=== PATIENT | female | born 1960 | race Caucasian/White ===

== ENCOUNTER 2016-05-30 14:58 | Inpatient (IN) | payer BC ==
[~2016-05-30] VITALS: Ht 157.5 cm; Wt 65.5 kg
[~2016-05-30 14:58] MED LIST: AMLO5TAB2 PO; ASPI81TA44 PO; ASPI81TA9 PO; ATOR10TA PO; CARV3.12 PO; CARV6.252 PO; CEPH-264 PO; CILO100T21 PO; CLOP75TA PO; CLOP75TA27 PO; CYCL5TAB PO; DIAZ5TAB PO; FAMO20TA5 PO; FURO-68 PO; HYDR-2868 PO; HYDR-971 PO; HYDR12.58 PO; INSU100C4 SQ; INSU100I11 SQ; INSU100I13 SQ; INSU100V13 SQ; ISOS30TA4 PO; LEVO500T38 PO; LISI-334 PO; LISI10TA2 PO; LISI40TA PO; METF10002 PO; PANT40TA3 PO; POLY17PO5 PO; TRAM50TA PO; VARE0.5T PO; VARE1TAB21 PO
--- NOTE | 2016-05-30 15:44 | PHYS DOC ---
Past Medical History Past Medical History: CAD, Diabetes-Type II, Hypertension, Renal Disease Additional Past Medical Histor: PVD,STEMI 04/2016 W STENT X 1 PLACEMENT RAC Past Surgical History: Appendectomy, Tonsillectomy, Other Additional Past Surgical Histo: Fem pop, LEFT OVARY REMOVED Alcohol Use: None Drug Use: None Adult General Chief Complaint Chief Complaint: CHEST PAIN HPI HPI 55-year-old female presents with ongoing chest pain for the last day midsternal in origin. She rates her pain a 9/10. Patient has a significant history of recent cardiac arrest on May 13 that required 4 minutes of CPR. Patient was then taken to the [facility] and had an RCA that was stented and an external defibrillator that was placed. Patient is currently having external defibrillator in place for 3 months and then will have an implantable to fibrillator after that. She denies the device going off. She denies any specific complaints. Review of Systems Review of Systems Constitutional: Denies fever or chills [] Eyes: Denies change in visual acuity, redness, or eye pain [] HENT: Denies nasal congestion or sore throat [] Respiratory: Denies cough or shortness of breath [] Cardiovascular: No additional information not addressed in HPI [] GI: Denies abdominal pain, nausea, vomiting, bloody stools or diarrhea [] : Denies dysuria or hematuria [] Musculoskeletal: Denies back pain or joint pain [] Integument: Denies rash or skin lesions [] Neurologic: Denies headache, focal weakness or sensory changes [] Endocrine: Denies polyuria or polydipsia [] Allergies Allergies Allergies Coded Allergies Type Severity Reaction Last Updated Verified codeine Allergy Intermediate Swelling- Tolerates [place] 05/30/16 Yes varenicline Adverse Reaction Intermediate Anxiety 05/30/16 Yes Physical Exam Physical Exam Constitutional: Well developed, well nourished, no acute distress, non-toxic appearance. [] HENT: Normocephalic, atraumatic, bilateral external ears normal, oropharynx moist, no oral exudates, nose normal. [] Eyes: PERRLA, EOMI, conjunctiva normal, no discharge. [] Neck: Normal range of motion, no tenderness, supple, no stridor. [] Cardiovascular:Heart rate regular rhythm, no murmur [] Lungs & Thorax: Bilateral breath sounds clear to auscultation [] Abdomen: Bowel sounds normal, soft, no tenderness, no masses, no pulsatile masses. [] Skin: Warm, dry, no erythema, no rash. [] Back: No tenderness, no CVA tenderness. [] Extremities: No tenderness, no cyanosis, no clubbing, ROM intact, no edema. [] Neurologic: Alert and oriented X 3, normal motor function, normal sensory function, no focal deficits noted. [] Psychologic: Affect normal, judgement normal, mood normal. [] Current Patient Data Vital Signs Vital Signs Date Time Temp Pulse Resp B/P Pulse Ox O2 Delivery O2 Flow Rate FiO2 05/30/16 15:04 98.1 71 18 114/57 Room Air 98.1 EKG EKG EKG as interpreted by me shows a sinus rhythm with rate of 75 bpm. There does appear to be some mild signs of ischemia on this EKG. In the leads aVL, V5, V6 there is some mild ST depression. There does not appear to be any acute ST elevation. This EKG does not meet STEMI criteria. Radiology/Procedures Radiology/Procedures Portable one view of the chest as interpreted by me does not reveal an acute cardiopulmonary process. Course & Med Decision Making Course & Med Decision Making Pertinent Labs and Imaging studies reviewed. (See chart for details) This 54-year-old female with significant history recent cardiac arrest is presenting with going chest pain will be admitted to the hospital for further evaluation and treatment. Her case was discussed with the hospitalist, Kenn Taveras, who agreed to admit the patient for further evaluation and treatment with a cardiology consult. An i-STAT troponin, chest x-ray and EKG were unrevealing at this time. She was admitted without incident. Dragon Disclaimer Dragon Disclaimer This electronic medical record was generated, in whole or in part, using a voice recognition dictation system. Departure Departure Impression: Primary Impression: Chest pain Disposition: ADMITTED INPATIENT Admitting Physician: Kenn Taveras Condition: STABLE Referrals: KENN TAVERAS MD (PCP) ARMIDA CASTRO DO May 30, 2016 15:43
[2016-05-30] MEDS ORDERED: ACETAMINOPHEN 325 MG TABLET. PO PRN (15:45)
[2016-05-30 15:50] LABS: BASO # 0.2 x10^3/uL (0.0-0.2); BASO % 2 % (0-3); EOS % 4 % (0-3); HEMATOCRIT 28.9 % (36.0-47.0); HEMOGLOBIN 9.6 g/dL (12.0-15.5); LYMPH # 1.8 x10^3/uL (1.0-4.8); LYMPH % 18 % (24-48); MEAN CORPUSCULAR HEMOGLOBIN 30 pg (25-35); MEAN CORPUSCULAR HGB CONC 33 g/dL (31-37); MEAN CORPUSCULAR VOLUME 90 fL (79-100); MONO % 5 % (0-9); NEUT % 72 % (31-73); PLATELET COUNT 550 x10^3/uL (140-400); RED BLOOD COUNT 3.22 x10^6/uL (3.50-5.40); RED CELL DISTRIBUTION WIDTH 13.5 % (11.5-14.5); WHITE BLOOD COUNT 9.9 x10^3/uL (4.0-11.0)
[2016-05-30 16:06] LABS: CALCIUM 9.1 mg/dL (8.5-10.1); CREATININE 2.7 mg/dL (0.6-1.0); GFR 18.4; POTASSIUM 5.5 mmol/L (3.5-5.1)
[2016-05-30] MEDS: ONDANSETRON PF 4 MG/2 ML VIAL. IV PRN (16:19)
[2016-05-30] MEDS: FENTANYL PF 100 MCG/2 ML VIAL. IV PRN ×2 (16:19→21:20)
--- NOTE | 2016-05-30 16:35 | EKG ---
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
[2016-05-30 17:42] VITALS: BP 121/53
[2016-05-30] MEDS ORDERED: POLYETHYLENE GLYCOL 3350 17 GM PACKET. PO PRN (18:00)
[2016-05-30] MEDS ORDERED: FUROSEMIDE 40 MG TABLET PO PRN (18:00)
[2016-05-30] MEDS ORDERED: DEXTROSE 50% 25 GM / 50ML DISP.SYRIN. IV PRN (18:00)
[2016-05-30] MEDS ORDERED: INSULIN ASPART 300 UNITS/3 ML INSULN.PEN SQ ONE (19:15)
[2016-05-30 19:35] VITALS: BP 113/53
[2016-05-30] MEDS: HYDRALAZINE 25 MG TABLET PO SCH (21:21)
[2016-05-30] MEDS: INSULIN DETEMIR 300 UNITS/3 ML INSULN.PEN. SQ SCH (21:25)
[2016-05-30 23:40] VITALS: BP 129/59
[2016-05-31] MEDS: FENTANYL PF 100 MCG/2 ML VIAL. IV PRN ×2 (00:20→08:57)
[2016-05-31] MEDS: ONDANSETRON PF 4 MG/2 ML VIAL. IV PRN (02:23)
[2016-05-31 03:00] VITALS: BP 124/50
[2016-05-31 03:41] LABS: BASO # 0.1 x10^3/uL (0.0-0.2); BASO % 1 % (0-3); EOS % 5 % (0-3); HEMATOCRIT 27.3 % (36.0-47.0); LYMPH # 2.6 x10^3/uL (1.0-4.8); LYMPH % 31 % (24-48); MEAN CORPUSCULAR HEMOGLOBIN 29 pg (25-35); MEAN CORPUSCULAR HGB CONC 33 g/dL (31-37); MEAN CORPUSCULAR VOLUME 89 fL (79-100); MONO % 8 % (0-9); NEUT % 55 % (31-73); PLATELET COUNT 476 x10^3/uL (140-400); RED BLOOD COUNT 3.06 x10^6/uL (3.50-5.40); RED CELL DISTRIBUTION WIDTH 13.9 % (11.5-14.5); WHITE BLOOD COUNT 8.2 x10^3/uL (4.0-11.0)
[2016-05-31 04:03] LABS: CALCIUM 8.4 mg/dL (8.5-10.1); CREATININE 2.9 mg/dL (0.6-1.0); POTASSIUM 5.2 mmol/L (3.5-5.1)
[2016-05-31 07:00] VITALS: BP 109/46
--- NOTE | 2016-05-31 07:11 | ACF ---
Admission Forms Criteria CHEST PAIN Clinical Indications for Admission to Inpatient Care (Place 'X' for any and all applicable criteria): Admission is indicated for chest pain and ANY ONE of the following(1)(2)(3)(4)(5 ): [ ]I. Angina with acute coronary syndrome (Also use Myocardial Infarction or Angina guideline) [ ]II. Hemodynamic instability [ X]III. Angina needing acute intervention as indicated by ALL of the following (11)(12): [X ]a) Unstable angina is present as indicated by angina that is ANY ONE of the following: [ ]i) New onset [ ]ii) Nocturnal [ X]iii) Prolonged at rest [ ]iv) Progressive [X ]b) Angina warrants acute intervention as indicated by ANY ONE of the following: [ ]i) Recurrent angina (e.g, not responding as previously to treatment) [ ]ii) Angina at rest or with low-level activities despite initial medical therapy [ ]iii) New or presumably new ST-segment depression on ECG [ ]iv) Signs or symptoms of heart failure (eg, dyspnea, pulmonary edema) [ ]v) New or worsening mitral regurgitation [ ]vi) Hemodynamic instability [ ]vii) Dangerous arrhythmia (eg, sustained ventricular tachycardia) [ ]viii) History of percutaneous coronary intervention within 6 months [ ]ix) History of coronary artery bypass graft surgery [ ]x) AGUSTIN risk score of 2 or greater[A] [ X]xi) History of Diabetes(14) [ ]xii) High-risk cardiac ischemia findings on noninvasive testing (e.g, echocardiogram, treadmill testing, nuclear scan) [ ]xiii) Chronic renal insufficiency (ie, estimated GFR less than 60 mL/min/1.732m) [ ]xiv) Left ventricular ejection fraction less than 40% [ ]IV. Evidence of UT (eg, cardiac biomarkers positive, ST-segment elevation on ECG) also use Myocardial Infarction Criteria Form. [ ]V. Pulmonary edema [ ]. Respiratory distress [ ]VII. Chest pain indicative of serious diagnosis other than coronary artery disease (eg, aortic dissection) [ ]VIII. Contraindications and/or Inappropriate clinical situations for Observational Care in patients with Chest Pain, when ANY ONE of the following is required: [ ]a) Patient with risk factor for pulmonary embolism, acute coronary syndrome and myocardial infarction (18) [ ]b) Patient with Pulmonary embolism require an average LOS of 4.3 days, therefore emergency department observation management is inappropriate 18,23 [ ]c) Painful condition/s in the elderly, have the highest rate of recidivism after emergency department observation management (10.8%) 20,21,22 [ ]d) Elevated cardiac biomarker requires intensive and exhaustive care (19) [ ]IX. General contraindications and/or Inappropriate clinical situations for Observational Care in patients with Chest Pain, when ANY ONE of the following is required: [ ]a) Prediction of prolongation of LOS based on ANY ONE of the following may be considered as a contraindication for observational care 2, 3, 4, 5, 6, 7, 8, 9, 10, 11 [ ]i) Age > 65 yrs. [ ]ii) Patient arriving by ambulance [ ]iii) Patient with high acuity [ ]iv) Patient requiring vital sign monitoring [ ]v) Patient on IV medication [ ]b) Systolic blood pressures 180mmHg 3,12 [ ]c) Patient with altered mental status including delirium and other alteration of consciousness, (3) [ ]d) Patient whose discharge disposition will be to a detention home or rehabilitation home should not be managed in Emergency Department Observation Unit. CMS rule requires 3 days hospital stay before such placement. 3,13 [ ]e) Patient with failure to thrive due to broad array of etiologies 3,16,17 [ ]f) Inability to ambulate 3,14 Extended stay beyond goal length of stay may be needed for (1)(28): [ ]a) Specific condition diagnosed after evaluation (eg, pulmonary embolism, aortic dissection) [ ]b) Unstable angina [ ]c) Continued suspicion of acute coronary syndrome with inability to complete needed cardiac evaluation (eg, patient clinically unable to undergo stress testing) [ ]d) Myocardial infarction (Contents from ANGINA and CHEST PAIN clinical indications for admission to inpatient care have been integrated in this form) The original [facility] content created by [employer] has been revised. The portions of the content which have been revised are identified through the use of italic text or in bold, and [facility] has neither reviewed nor approved the modified material. All other unmodified content is copyright [employer]. Please see references footnoted in the original [facility] edition 2016 Admission Criteria Met?: Yes ANI CROOKS May 31, 2016 07:11 ADRIANA CHAVES Jun 01, 2016 06:04
[2016-05-31] MEDS: INSULIN DETEMIR 300 UNITS/3 ML INSULN.PEN. SQ SCH ×2 (08:00→17:28)
[2016-05-31] MEDS: INSULIN ASPART 300 UNITS/3 ML INSULN.PEN SQ SCH ×3 (08:00→17:29)
--- NOTE | 2016-05-31 08:31 | RAD ---
Indication chest pain. A single view of the chest was obtained. Comparison is made to an examination 8 days earlier. The heart and pulmonary vessels are within normal limits. There is some minimal volume loss at the left lung base likely reflecting atelectasis. A definite consolidated pneumonia is not seen. Significant pleural fluid is not seen. There is no pneumothorax. IMPRESSION: No focal process seen in the chest. Minimal volume loss, likely reflecting atelectasis, at the left lung base
--- NOTE | 2016-05-31 08:53 | PDOC ---
Provider Note Provider Note [id number] WILLA MABRY MD May 31, 2016 08:53
[2016-05-31] MEDS: CLOPIDOGREL BISULFATE 75 MG TABLET PO SCH (08:57)
[2016-05-31] MEDS: CARVEDILOL 6.25 MG TABLET PO SCH ×2 (08:57→17:25)
[2016-05-31] MEDS: PANTOPRAZOLE 40 MG TABLET. PO SCH (08:57)
[2016-05-31] MEDS: ASPIRIN ENTERIC COATED 81 MG TABLET.DR. PO SCH (08:57)
[2016-05-31] MEDS: ISOSORBIDE MONONITRATE ER 30 MG TAB.ER.24H PO SCH (09:00)
[2016-05-31] MEDS: HYDRALAZINE 25 MG TABLET PO SCH (09:00)
[2016-05-31] MEDS ORDERED: AMLODIPINE BESYLATE 5 MG TABLET PO SCH (09:00)
--- NOTE | 2016-05-31 09:57 | HP ---
ADMIT DATE: CHIEF COMPLAINT: Chest pain. HISTORY OF PRESENT ILLNESS: A 55-year-old white female with known coronary artery disease, CKD 3/4, and diabetes, came in with squeezing pressure-like chest pain in her upper chest her back that occurred while she was sitting at rest. Cardiac catheterization a few weeks ago showed coronary artery disease and stents were placed and she still has some residual disease left and this occurred after cardiac arrest and subsequent procedures. Subsequently, she has recovered. She went home on Imdur, hydralazine, and lisinopril new medications. EKG showed no acute change. In the ER, troponins x 3 were normal as well. PAST MEDICAL HISTORY: Well documented in the old record. ALLERGIES: CODEINE is the only drug she is allergic to. She is taking Chantix currently for tobacco. SOCIAL HISTORY: , employed. Nondrinker, heavy smoker for many years, although trying to quit now. FAMILY HISTORY: Unremarkable. REVIEW OF SYSTEMS: No other known problems. OBJECTIVE: ENT: All within normal limits. NECK: No JVD, masses, or thyroid enlargement. LUNGS: Clear. CARDIOVASCULAR: Regular rate. No irregular beat or murmur. ABDOMEN: Soft, benign, and nontender. EXTREMITIES: Good pedal and radial pulses. Joint, no joint or skin lesions, 2+ clubbing is noted. SKIN: Turgor normal. NEUROLOGIC: Physiologic. ASSESSMENT: 1. Chest pain suspicious for unstable angina in a patient with known coronary artery disease. Troponin is unremarkable and no ST changes. 2. Chronic kidney disease 3/4 slightly worse with mild hyperkalemia. This may be due to the recent addition of low dose lisinopril. 3. Anemia of chronic disease. 4. Chronic obstructive pulmonary disease. 5. Insulin-dependent diabetes. PLAN: We will hold lisinopril and follow potassium levels. We will hold Norvasc as her blood pressure is somewhat low as well. Cardiology to see regarding her chest pain as she is already maximally medically treated at this time. WILLA MABRY MD DR: TAQUERIA/minnie JOB#: [id number] / [id number]
[2016-05-31 11:00] VITALS: BP 111/51
--- NOTE | 2016-05-31 12:05 | PDOC2 ---
[facility] 05/31/16 1205: CARDIAC CONSULT DATE OF CONSULT Date of Consult DATE: 05/31/16 TIME: 10:20 REASON FOR CONSULT Reason for Consult: Chest Pain REFERRING PHYSICIAN Referring Physician: Dr. Regalado SOURCE Source: Chart review, Patient HISTORY OF PRESENT ILLNESS HISTORY OF PRESENT ILLNESS This is a 55 yo female, who recently underwent PCI/stent to RCA in the setting of non-STEMI and cardiac arrest, who presented with complaints of chest pain. Patient reports pain began yesterday afternoon. Located in her left central chest. Describes as pressure. Associated with nausea and numbness and tingling in jaw. Lasted approximately 40 mins. Was worsened with standing up; felt like blood pressure was too low. Relieved by fentanyl given in ED. Also reports experiencing pressure in upper back and intermittent fluttering sensation in her chest. Denies any SOA, diaphoresis, dizziness, orthopnea, or NEELY. No recent illness/ fevers. Reports compliance with medications. PAST MEDICAL HISTORY Past Medical History Cardiovascular: HTN, MS, CAD- s/p PCI/stent to RCA, cardiac arrest, Hyperlipidemia, ICM- LVEF 25%, Other (PAD with previous LENS BLOCKER/stent to NAN; LENS BLOCKER to in-stent restonsis of REIA; atherectomy/LENS BLOCKER/stent to RT SFA) GI: Other (gastric ulcer- 2011) Heme/Onc: Anemia NOS, Other (lumpectomy for breast lump - 2001) Hepatobiliary: Other (pancreatitis) ENT: Other (proliferative changes in both eyes; S/P laser surgery) Renal/: Chronic renal insuff (stage 3 - 4) Endocrine: Diabetes (type II) PAST SURGICAL HISTORY Past Surgical History Also see PMH Appendectomy, Tubal Ligation, Tonsillectomy, Other (left oopherectomy) FAMILY HISTORY Family History Coronary Artery Disease (mother), Diabetes (mother), Hypertension (father), Stroke (mother) SOCIAL HISTORY Smoke: <1 pack per day ALCOHOL: none Drugs: None Lives: with Family Domestic Violence: Neg CURRENT MEDICATIONS CURRENT MEDICATIONS Current Medications Medications (Trade) Dose Ordered Sig/Suhas Route PRN Reason Start Time Stop Time Status Last Admin Dose Admin Ondansetron HCl (Zofran) 4 mg PRN Q8HRS PRN IV NAUSEA/VOMITING 05/30/16 15:45 05/31/16 15:44 05/31/16 02:23 Fentanyl Citrate (Fentanyl 2ml Vial) 50 mcg PRN Q2HR PRN IV PAIN 05/30/16 15:45 05/31/16 15:44 05/31/16 08:57 Aspirin (Ecotrin) 81 mg DAILY PO 05/31/16 09:00 05/31/16 08:57 Carvedilol (Coreg) 6.25 mg BIDWMEALS PO 05/31/16 08:00 05/31/16 08:57 Clopidogrel Bisulfate (Plavix) 75 mg DAILY PO 05/31/16 09:00 05/31/16 08:57 Hydralazine HCl (Apresoline) 25 mg TID PO 05/30/16 21:00 05/30/16 21:21 Pantoprazole Sodium (Protonix) 40 mg DAILY PO 05/31/16 09:00 05/31/16 08:57 Insulin Detemir (Levemir) 15 units BIDWMEALS SQ 05/30/16 21:00 05/30/16 21:25 Insulin Aspart (Novolog) 4 units 1X ONCE SQ 05/30/16 19:15 05/30/16 19:19 DC 05/30/16 19:29 ALLERGIES ALLERGIES: Coded Allergies: codeine (Verified Allergy, Intermediate, Swelling- Tolerates [place], 05/30/16 ) varenicline (Verified Adverse Reaction, Intermediate, Anxiety, 05/30/16) states she 'goes out of my mind' ROS Review of System 14 point ROS conducted with pertinent positives noted above in HPI. PHYSICAL EXAM General: Alert, Oriented X3, Cooperative, No acute distress HEENT: Atraumatic, Mucous membr. moist/pink Lungs: Clear to auscultation, Normal air movement Heart: Regular rate, Normal S1, Normal S2, Other (2/6 systolic murmur) Abdomen: Soft, No tenderness Extremities: No edema, Normal pulses Skin: No breakdown, No significant lesion Neuro: Normal speech, Normal tone, Sensation intact Psych/Mental Status: Mental status NL, Mood NL MUSCULOSKELETAL: Full range of motion without pain VITALS VITALS Vital Signs Date Time Temp Pulse Resp B/P Pulse Ox O2 Delivery O2 Flow Rate FiO2 05/31/16 11:00 98.4 84 18 111/51 96 Room Air 98.4 LABS Lab: Laboratory Tests Test 05/30/16 15:40 05/30/16 15:48 05/30/16 17:47 05/30/16 20:54 White Blood Count 9.9x10^3/uL (4.0-11.0) Red Blood Count 3.22x10^6/uL (3.50-5.40) Hemoglobin 9.6g/dL (12.0-15.5) Hematocrit 28.9% (36.0-47.0) Mean Corpuscular Volume 90fL (79-100) Mean Corpuscular Hemoglobin 30pg (25-35) Mean Corpuscular Hemoglobin Concent 33g/dL (31-37) Red Cell Distribution Width 13.5% (11.5-14.5) Platelet Count 550x10^3/uL (140-400) Neutrophils (%) (Auto) 72% (31-73) Lymphocytes (%) (Auto) 18% (24-48) Monocytes (%) (Auto) 5% (0-9) Eosinophils (%) (Auto) 4% (0-3) Basophils (%) (Auto) 2% (0-3) Neutrophils # (Auto) 7.1x10^3uL (1.8-7.7) Lymphocytes # (Auto) 1.8x10^3/uL (1.0-4.8) Monocytes # (Auto) 0.5x10^3/uL (0.0-1.1) Eosinophils # (Auto) 0.4x10^3/uL (0.0-0.7) Basophils # (Auto) 0.2x10^3/uL (0.0-0.2) Sodium Level 134mmol/L (136-145) Potassium Level 5.5mmol/L (3.5-5.1) Chloride Level 98mmol/L (98-107) Carbon Dioxide Level 28mmol/L (21-32) Anion Gap 8 (6-14) Blood Urea Nitrogen 39mg/dL (7-20) Creatinine 2.7mg/dL (0.6-1.0) Estimated GFR (Cockcroft-Gault) 18.4 Glucose Level 252mg/dL (70-99) Calcium Level 9.1mg/dL (8.5-10.1) Troponin I Quantitative < 0.017ng/mL (0.000-0.055) Bedside Troponin I 0.03ng/ml (<0.08) Glucose (Fingerstick) 242mg/dL (70-99) 373mg/dL (70-99) Test 05/30/16 21:47 05/31/16 03:25 05/31/16 07:03 05/31/16 11:44 Troponin I Quantitative < 0.017ng/mL (0.000-0.055) 0.019ng/mL (0.000-0.055) White Blood Count 8.2x10^3/uL (4.0-11.0) Red Blood Count 3.06x10^6/uL (3.50-5.40) Hemoglobin 9.0g/dL (12.0-15.5) Hematocrit 27.3% (36.0-47.0) Mean Corpuscular Volume 89fL (79-100) Mean Corpuscular Hemoglobin 29pg (25-35) Mean Corpuscular Hemoglobin Concent 33g/dL (31-37) Red Cell Distribution Width 13.9% (11.5-14.5) Platelet Count 476x10^3/uL (140-400) Neutrophils (%) (Auto) 55% (31-73) Lymphocytes (%) (Auto) 31% (24-48) Monocytes (%) (Auto) 8% (0-9) Eosinophils (%) (Auto) 5% (0-3) Basophils (%) (Auto) 1% (0-3) Neutrophils # (Auto) 4.5x10^3uL (1.8-7.7) Lymphocytes # (Auto) 2.6x10^3/uL (1.0-4.8) Monocytes # (Auto) 0.6x10^3/uL (0.0-1.1) Eosinophils # (Auto) 0.4x10^3/uL (0.0-0.7) Basophils # (Auto) 0.1x10^3/uL (0.0-0.2) Sodium Level 135mmol/L (136-145) Potassium Level 5.2mmol/L (3.5-5.1) Chloride Level 99mmol/L (98-107) Carbon Dioxide Level 30mmol/L (21-32) Anion Gap 6 (6-14) Blood Urea Nitrogen 41mg/dL (7-20) Creatinine 2.9mg/dL (0.6-1.0) Estimated GFR (Cockcroft-Gault) 17.0 Glucose Level 148mg/dL (70-99) Calcium Level 8.4mg/dL (8.5-10.1) Glucose (Fingerstick) 108mg/dL (70-99) 294mg/dL (70-99) ECHOCARDIOGRAM ECHOCARDIOGRAM DATE: 05/13/16 1719 <Conclusion> The left ventricle is normal size. Left ventricle ejection fraction is severely impaired. The Ejection Fraction is <20%. There is mild concentric left ventricular hypertrophy. There is no significant aortic valvular stenosis. Doppler and Color Flow revealed no significant aortic regurgitation. Doppler and Color Flow revealed trace to mild mitral regurgitation. Doppler and Color Flow revealed mild tricuspid regurgitation. The PA pressure was estimated at 15 mmHg. DATE: 05/24/16 1408 <Conclusion> The left ventricular systolic function is moderate to severely diminished. LVEF 25% There is severe hypokinesis of the distal 2/3rd of the LV with prominent wall motion abnormalities noted in the infero-septum, apex and anterior marks. The lateral wall is grossly normal. Cannot rule out a mural apical LV thrombus. There is small left pleural effusion. STRESS TEST STRESS TEST Conclusion 1. Regadenoson cardioisotope stress test showed diaphragmatic attenuation artifact without any evidence of ischemia. 2. Moderate global left ventricular dysfunction with ejection fraction calculated at 36%. 3. Low to Intermediate risk for cardiac events. DATE: 05/05/16 1304 HEART CATH HEART CATH Findings. Hemodynamics. LV 108/18, aortic root 104/52. Coronaries. Left main. The left main had no lesions. Left anterior descending. The LAD had a mid 50% lesion and diffuse mid disease in the 35% range. Left circumflex. The left circumflex had a mid 30-35% lesion. It had diffuse distal small vessel disease. Right coronary artery. The right coronary artery had diffuse mid disease of 40% . It also had a mid to distal subtotal lesion. <Conclusion> Severe single-vessel coronary disease with a subtotal lesion in the right coronary artery. Diffuse moderate disease in the LAD and left circumflex system. Successful bare metal stenting of the subtotal right coronary artery lesion with a 0% residual. DATE: 05/13/16 7262 ASSESSMENT/PLAN ASSESSMENT/PLAN 1. Chest Pain, non-cardiac troponin series normal- AMI ruled out EKG without any significant acute changes by comparison recent cath with PCI/BMS to RCA. Diffuse moderate disease of LAD and LCx as noted above. Pain MSK in origin as it is clearly reproducible with palpation to central chest continue with secondary prevention including DAPT. 2. Palpitations no significant ectopy noted on telemetry despite having fluttering in chest last night. check TSH, Mg continue BB currently wearing LifeVest- will attempt to obtain device records to note presence of significant arrhythmias contributing to symptoms 3. Chronic systolic heart failure Recent 2-D echo showed LVEF 25% repeat echo today with LVEF ~ 25% - no significant change. Appears clinically compensated. continue with optimization therapy. Lasix PRN Baseline CR has been near 2.7, now 2.9 4. Ischemic cardiomyopathy LVEF remains depressed on repeat echo Plan for outpatient 2-D echocardiogram in 2-3 months to evaluate the need for AICD implantation. resume LifeVest upon discharge 5. Peripheral vascular disease s/p percutaneous intervention, presently without any claudication symptoms. 6. Hypertension: low-normotensive stop hydralazine 7. Diabetes mellitus type 2: Treat per IM 8. Chronic kidney disease Problems: ZO ALCARAZ MD 06/01/16 0817: CARDIAC CONSULT ALLERGIES ALLERGIES: Coded Allergies: codeine (Verified Allergy, Intermediate, Swelling- Tolerates [place], 05/30/16 ) varenicline (Verified Adverse Reaction, Intermediate, Anxiety, 05/30/16) states she 'goes out of my mind' ASSESSMENT/PLAN ASSESSMENT/PLAN Patient seen and examined. Agree with health advocate assessment and plan. Chest pain very atypical, reproducible to palpation and most probably musculoskeletal. Myocardial infarction was ruled out. Telemetry did not show any significant arrhythmias. Chronic systolic heart failure clinically well compensated. Continue current secondary prevention measures. No further cardiac workup is indicated at this time. Thank you for your consultation. Problems: MOE BENTONILY SUKHJINDER May 31, 2016 12:05 ZO ALCARAZ MD Jun 01, 2016 08:17
[2016-05-31 15:00] VITALS: BP 116/59
[2016-05-31] MEDS: HYDROCODONE/APAP 5/325MG TABLET. PO PRN (18:12)
[2016-05-31 19:40] VITALS: BP 116/59
[2016-05-31 22:45] VITALS: BP 145/70
[2016-06-01 03:35] VITALS: BP 161/68
[2016-06-01 04:34] LABS: CALCIUM 8.9 mg/dL (8.5-10.1); CREATININE 3.2 mg/dL (0.6-1.0); GFR 15.2; POTASSIUM 5.6 mmol/L (3.5-5.1)
[2016-06-01] MEDS: HYDROCODONE/APAP 5/325MG TABLET. PO PRN ×3 (05:45→13:45)
[2016-06-01 07:00] VITALS: BP 140/58
[2016-06-01] MEDS: ASPIRIN ENTERIC COATED 81 MG TABLET.DR. PO SCH (08:33)
[2016-06-01] MEDS: CARVEDILOL 6.25 MG TABLET PO SCH ×2 (08:33→16:53)
[2016-06-01] MEDS: CLOPIDOGREL BISULFATE 75 MG TABLET PO SCH (08:34)
[2016-06-01] MEDS: ISOSORBIDE MONONITRATE ER 30 MG TAB.ER.24H PO SCH (08:34)
[2016-06-01] MEDS: PANTOPRAZOLE 40 MG TABLET. PO SCH (08:34)
[2016-06-01] MEDS: INSULIN DETEMIR 300 UNITS/3 ML INSULN.PEN. SQ SCH ×2 (08:45→17:52)
[2016-06-01] MEDS: INSULIN ASPART 300 UNITS/3 ML INSULN.PEN SQ SCH ×3 (08:45→17:58)
--- NOTE | 2016-06-01 08:45 | PDOC ---
Provider Note Provider Note vss, bp ok, no edema, but K+ higher 5.6, creat 3.2- is off acei as of 05/30 as suspected source of K+- will sharif mena , add kayexalate, po hydrate, repeat lab in am- she agrees to plan WILLA MABRY MD Jun 01, 2016 08:45
[2016-06-01] MEDS ORDERED: SODIUM POLYSTYRENE SULFONATE 15 GM/60 ML ORAL.SUSP. PO ONE (09:00)
[2016-06-01 11:30] VITALS: BP 126/60
[2016-06-01 15:00] VITALS: BP 136/66
[2016-06-01 20:00] VITALS: BP 141/61
[2016-06-01 23:00] VITALS: BP 131/61
[2016-06-02 03:00] VITALS: BP 140/65
[2016-06-02] MEDS: HYDROCODONE/APAP 5/325MG TABLET. PO PRN (05:30)
[2016-06-02 06:19] LABS: CALCIUM 8.6 mg/dL (8.5-10.1); CREATININE 2.9 mg/dL (0.6-1.0)
[2016-06-02 06:22] LABS: POTASSIUM 5.2 mmol/L (3.5-5.1)
[2016-06-02 07:09] VITALS: BP 128/63
[2016-06-02] MEDS: INSULIN DETEMIR 300 UNITS/3 ML INSULN.PEN. SQ SCH (08:00)
[2016-06-02] MEDS: INSULIN ASPART 300 UNITS/3 ML INSULN.PEN SQ SCH ×2 (08:00→12:00)
[2016-06-02] MEDS: CARVEDILOL 6.25 MG TABLET PO SCH (08:00)
--- NOTE | 2016-06-02 09:33 | DISCH ---
DISCHARGE INSTRUCTIONS Condition on Discharge Condition on Discharge: Stable Activity After Discharge Activity Instructions for Disc: No restrictions Diet after Discharge Diet after Discharge: Renal Non-Dialysis Follow-Up Follow up with: asscheduled WILLA MABRY MD Jun 02, 2016 09:32
--- NOTE | 2016-06-02 09:38 | PDOC ---
Provider Note Provider Note [id number] WILLA MABRY MD Jun 02, 2016 09:38
[2016-06-02] MEDS ORDERED: SODIUM POLYSTYRENE SULFONATE 15 GM/60 ML ORAL.SUSP. PO ONE (10:00)
[2016-06-02 10:22] VITALS: BP 134/63
[2016-06-02 14:15] VITALS: BP 127/69
--- NOTE | 2016-06-02 16:09 | DS ---
DATE OF DISCHARGE: 06/02/2016 HOSPITAL SUMMARY: The patient has a history of cardiomyopathy and recent stents and cardiac arrest. She came back in with abrupt onset of chest pain and was possibly ischemic, but EKG showed no change and troponin showed no change as well. It was felt that the chest pain was more chest wall than cardiac. Troponin showed no acute change, TSH and chemistry profile unremarkable except for creatinine of 2.9, which is stable for her, though her admission potassium was high at 5.5. Her lisinopril was discontinued, which had been recently started for her ischemic cardiomyopathy. Potassium went up to 5.6 and then with two doses of Kayexalate, it came down to 5.2 at the time of dismissal and creatinine stable at 2.9. Hemoglobin was low at 9, which is normal for her and chest x-ray showed no acute change. She is comfortable to be followed as an outpatient at this point. FINAL DIAGNOSES: 1. Acute chest pain secondary to chest wall contusion from cardiac arrest and resuscitation. 2. Hyperkalemia likely secondary to JOSEPHINE inhibitors, improving. 3. Chronic kidney disease IV, stable. 3. Anemia of chronic disease. OPERATIONS, PROCEDURES, COMPLICATIONS: None. CONSULTATIONS: Dr. King's group. DISPOSITION: She will stay off lisinopril and other JOSEPHINE inhibitors as risk greater than benefit and also stop hydralazine. Rest of meds remain the same. Office followup is scheduled. Cardiac and renal restriction on diet as a diabetic and continue tobacco avoidance strongly encouraged. Prognosis is extremely guarded given the severity of her disease and she is wearing the LifeVest as a risk for malignant cardiac arrhythmias given her cardiac status. WILLA MABRY MD DR: TAQUERIA/minnie JOB#: [id number] / [id number]
== END 2016-06-02 15:42 | disposition home or self-care (01) | DRG 605 ==
LOC: ER 14:58 → 2 NORTH 15:39
PROVIDERS: ADMIT Family Medicine; ATTEND Family Medicine
DX: S20.219A Contusion of unspecified front wall of thorax, initial encounter (principal); I50.22 Chronic systolic (congestive) heart failure; N18.4 Chronic kidney disease, stage 4 (severe); I13.0 Hypertensive heart and chronic kidney disease with heart failure and stage 1 through stage 4 chronic kidney disease, or unspecified chronic kidney disease; E87.5 Hyperkalemia; D63.8 Anemia in other chronic diseases classified elsewhere; E11.22 Type 2 diabetes mellitus with diabetic chronic kidney disease; E78.5 Hyperlipidemia, unspecified; I25.10 Atherosclerotic heart disease of native coronary artery without angina pectoris; I25.2 Old myocardial infarction; D64.9 Anemia, unspecified; I25.5 Ischemic cardiomyopathy; I73.9 Peripheral vascular disease, unspecified; J44.9 Chronic obstructive pulmonary disease, unspecified; Z79.4 Long term (current) use of insulin; Z82.3 Family history of stroke; Z82.49 Family history of ischemic heart disease and other diseases of the circulatory system; Z83.3 Family history of diabetes mellitus; Z87.11 Personal history of peptic ulcer disease; Z87.891 Personal history of nicotine dependence; Z90.49 Acquired absence of other specified parts of digestive tract; Z95.5 Presence of coronary angioplasty implant and graft; Z95.810 Presence of automatic (implantable) cardiac defibrillator; Z98.890 Other specified postprocedural states; Z90.721 Acquired absence of ovaries, unilateral; Z88.5 Allergy status to narcotic agent; Z88.8 Allergy status to other drugs, medicaments and biological substances; T50.995A Adverse effect of other drugs, medicaments and biological substances, initial encounter
CPT/HCPCS: 36415; 71010; 80048; 82947; 83735; 84443; 84484; 85027; 93005; J1815; J2405; J3010; 99285-25

== ENCOUNTER 2016-06-14 11:25 | Emergency (ER) | payer BC ==
[~2016-06-14] VITALS: Ht 157.5 cm; Wt 57.2 kg
[2016-06-14 12:07] LABS: BASO # 0.1 x10^3/uL (0.0-0.2); BASO % 1 % (0-3); EOS % 3 % (0-3); HEMATOCRIT 30.6 % (36.0-47.0); HEMOGLOBIN 10.2 g/dL (12.0-15.5); LYMPH # 2.5 x10^3/uL (1.0-4.8); LYMPH % 28 % (24-48); MEAN CORPUSCULAR HEMOGLOBIN 30 pg (25-35); MEAN CORPUSCULAR HGB CONC 33 g/dL (31-37); MEAN CORPUSCULAR VOLUME 90 fL (79-100); MONO % 5 % (0-9); NEUT % 63 % (31-73); PLATELET COUNT 353 x10^3/uL (140-400); RED CELL DISTRIBUTION WIDTH 14.7 % (11.5-14.5); WHITE BLOOD COUNT 8.9 x10^3/uL (4.0-11.0)
--- NOTE | 2016-06-14 12:16 | RAD ---
Indication chest pain and shortness of breath. Hypertension. A single view of the chest was obtained and is compared to an examination 16 days earlier. Heart size is at the upper limits of normal. There is no gross congestive heart failure. There is no focal consolidated pneumonia. Significant pleural fluid is not present. There is no pneumothorax. Visualized bony structures appear grossly intact. IMPRESSION: No acute or focal process seen in the chest
--- NOTE | 2016-06-14 12:28 | EKG ---
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
--- NOTE | 2016-06-14 12:40 | PHYS DOC ---
Past Medical History Past Medical History: CAD, Diabetes-Type II, Hypertension, AL, Renal Disease Additional Past Medical Histor: PVD,STEMI 04/2016 W STENT X 1 PLACEMENT RAC Past Surgical History: Appendectomy, Tonsillectomy, Other Additional Past Surgical Histo: Fem pop, LEFT OVARY REMOVED Alcohol Use: None Drug Use: None Adult General Chief Complaint Chief Complaint: DIZZY/LIGHT HEADED HPI HPI Patient is a 56 year old female who presents with dizziness, shortness of breath and then ICD vest trying to fire. Currently she only complains of a headache after she took nitroglycerin as EMS noted some EKG changes. She denied any chest pain. Currently she is chest pain-free she denies any shortness of breath showing has her headache. She does have a history of coronary disease and had a stent placement in RCA according to her in April 2016. His past medical history diabetes, hypertension, chronic renal insufficiency. Review of Systems Review of Systems Constitutional: Denies fever or chills [] Eyes: Denies change in visual acuity, redness, or eye pain [] HENT: Denies nasal congestion or sore throat [] Respiratory: Denies cough or shortness of breath [] Cardiovascular: No additional information not addressed in HPI [] GI: Denies abdominal pain, nausea, vomiting, bloody stools or diarrhea [] : Denies dysuria or hematuria [] Musculoskeletal: Denies back pain or joint pain [] Integument: Denies rash or skin lesions [] Neurologic: Denies focal weakness or sensory changes positive for headache [] Endocrine: Denies polyuria or polydipsia [] Current Medications Current Medications Current Medications Medications (Trade) Dose Ordered Sig/Suhas Start Time Stop Time Status Last Admin Dose Admin Fentanyl Citrate (Fentanyl 2ml Vial) 50 mcg 1X ONCE 06/14/16 13:00 06/14/16 13:01 DC 06/14/16 13:06 50 MCG Ondansetron HCl (Zofran) 4 mg 1X ONCE 06/14/16 13:15 06/14/16 13:16 DC 06/14/16 13:26 4 MG Allergies Allergies Allergies Coded Allergies Type Severity Reaction Last Updated Verified codeine Allergy Intermediate Swelling- Tolerates [place] 05/30/16 Yes varenicline Adverse Reaction Intermediate Anxiety 05/30/16 Yes Physical Exam Physical Exam Constitutional: Well developed, well nourished, no acute distress, non-toxic appearance. [] HENT: Normocephalic, atraumatic, bilateral external ears normal, oropharynx moist, no oral exudates, nose normal. [] Eyes: PERRLA, EOMI, conjunctiva normal, no discharge. [] Neck: Normal range of motion, no tenderness, supple, no stridor. [] Cardiovascular:Heart rate regular rhythm, no murmur [] Lungs & Thorax: Bilateral breath sounds clear to auscultation [] Abdomen: Bowel sounds normal, soft, no tenderness, no masses, no pulsatile masses. [] Skin: Warm, dry, no erythema, no rash. [] Back: No tenderness, no CVA tenderness. [] Extremities: No tenderness, no cyanosis, no clubbing, ROM intact, no edema. [] Neurologic: Alert and oriented X 3, normal motor function, normal sensory function, no focal deficits noted. [] Psychologic: Affect normal, judgement normal, mood normal. [] Current Patient Data Vital Signs Vital Signs Date Time Temp Pulse Resp B/P Pulse Ox O2 Delivery O2 Flow Rate FiO2 06/14/16 16:29 90 18 121/55 100 Room Air 06/14/16 11:25 97.8 97.8 Lab Values Laboratory Tests Test 06/14/16 12:00 06/14/16 12:30 White Blood Count 8.9x10^3/uL (4.0-11.0) Red Blood Count 3.40x10^6/uL (3.50-5.40) L Hemoglobin 10.2g/dL (12.0-15.5) L Hematocrit 30.6% (36.0-47.0) L Mean Corpuscular Volume 90fL (79-100) Mean Corpuscular Hemoglobin 30pg (25-35) Mean Corpuscular Hemoglobin Concent 33g/dL (31-37) Red Cell Distribution Width 14.7% (11.5-14.5) H Platelet Count 353x10^3/uL (140-400) Neutrophils (%) (Auto) 63% (31-73) Lymphocytes (%) (Auto) 28% (24-48) Monocytes (%) (Auto) 5% (0-9) Eosinophils (%) (Auto) 3% (0-3) Basophils (%) (Auto) 1% (0-3) Neutrophils # (Auto) 5.6x10^3uL (1.8-7.7) Lymphocytes # (Auto) 2.5x10^3/uL (1.0-4.8) Monocytes # (Auto) 0.4x10^3/uL (0.0-1.1) Eosinophils # (Auto) 0.3x10^3/uL (0.0-0.7) Basophils # (Auto) 0.1x10^3/uL (0.0-0.2) Prothrombin Time 12.5SEC (11.7-14.0) Prothrombin Time INR 1.0 (0.8-1.1) Sodium Level 135mmol/L (136-145) L Potassium Level 5.3mmol/L (3.5-5.1) H Chloride Level 100mmol/L (98-107) Carbon Dioxide Level 25mmol/L (21-32) Anion Gap 10 (6-14) Blood Urea Nitrogen 36mg/dL (7-20) H Creatinine 2.8mg/dL (0.6-1.0) H Estimated GFR (Cockcroft-Gault) 17.6 Glucose Level 230mg/dL (70-99) H Calcium Level 8.5mg/dL (8.5-10.1) Magnesium Level 2.3mg/dL (1.8-2.4) Total Bilirubin 0.1mg/dL (0.2-1.0) L Direct Bilirubin < 0.1mg/dL (0.0-0.2) Aspartate Amino Transferase (AST) 9U/L (15-37) L Alanine Aminotransferase (ALT) 11U/L (14-59) L Alkaline Phosphatase 121U/L (46-116) H Creatine Kinase 42U/L (26-192) Creatine Kinase MB (Mass) 1.9ng/mL (0.0-3.6) Creatine Kinase MB Relative Index % (0-4) Troponin I Quantitative < 0.017ng/mL (0.000-0.055) WC-Axs-D-Type Natriuretic Peptide 73646mt/mL (0-124) H Total Protein 6.1g/dL (6.4-8.2) L Albumin 2.9g/dL (3.4-5.0) L Thyroid Stimulating Hormone (TSH) 1.338uIU/mL (0.358-3.74) Laboratory Tests 06/14/16 12:00 Laboratory Tests 06/14/16 12:30 EKG EKG EKG shows sinus rhythm with a rate of [address] elevation in lead V3, T-wave inversions in 1, aVL, as interpreted by me. Radiology/Procedures Radiology/Procedures [facility] [address] [place] [address] IMAGING REPORT Signed PATIENT: DRISS RIZO ACCOUNT: [id number] : 1960 LOCATION: ER AGE: 56 SEX: F EXAM STATUS: REG ER ORD. PHYSICIAN: AMY SAUNDERS MD REASON: chest pain PROCEDURE: PORTABLE CHEST 1V Indication chest pain and shortness of breath. Hypertension. A single view of the chest was obtained and is compared to an examination 16 days earlier. Heart size is at the upper limits of normal. There is no gross congestive heart failure. There is no focal consolidated pneumonia. Significant pleural fluid is not present. There is no pneumothorax. Visualized bony structures appear grossly intact. IMPRESSION: No acute or focal process seen in the chest DICTATED and SIGNED BY: HARDIK MCNEIL MD DATE: 06/14/16 1211 CC: AMY SAUNDERS MD; WILLA MABRY MD ~ Course & Med Decision Making Course & Med Decision Making Pertinent Labs and Imaging studies reviewed. (See chart for details) Patient presents because she states the ICD vas was getting ready to fire. Cardiology wanted the [place] be interrogated. Patient is being checked out to Dr. Arias for follow-up on labs, cardiology recommendations and disposition. Adavied I took over at shift change. Apparently, the vessels fitting well. She has been refitted with a smoker fast. I reviewed the tracings from earlier today. The only thing that showed up was some artifact, but no detectable arrhythmias. I have already discussed this case with the cardiology nurse practitioner Ijeoma. We both believe patient is safe to go home given that she denies have any arrhythmias. Not sure what caused her to be dizzy, but this has resolved. It seems to happen intermittently after taking her medications in the morning. I advised cardiology and primary care follow-up. Dragon Disclaimer Dragon Disclaimer This electronic medical record was generated, in whole or in part, using a voice recognition dictation system. Departure Departure Impression: Primary Impression: Dizziness Disposition: 01 HOME, SELF-CARE Condition: STABLE Referrals: WILLA MABRY MD (PCP) Patient Instructions: Dizziness, [id number] Additional Instructions: Be sure you're drinking plenty of fluids. Try to get at least 2-3 L daily. Follow-up with your primary doctor in clinic as well as her finance manager soon. If you have further episodes of severe dizziness, chest pain, problems breathing , passing out, or have any other changes that are worrisome and return to the emergency department. AMY SAUNDERS MD Jun 14, 2016 12:40 AVNI ARIAS MD Jun 14, 2016 16:54
[2016-06-14 12:45] LABS: PROTHROMBIN TIME PATIENT 12.5 SEC (11.7-14.0)
[2016-06-14 12:47] LABS: ANION GAP 10 (6-14); BLOOD UREA NITROGEN 36 mg/dL (7-20); CALCIUM 8.5 mg/dL (8.5-10.1); CARBON DIOXIDE 25 mmol/L (21-32); CHLORIDE 100 mmol/L (98-107); CREATININE 2.8 mg/dL (0.6-1.0); GFR 17.6; GLUCOSE 230 mg/dL (70-99); POTASSIUM 5.3 mmol/L (3.5-5.1); SODIUM 135 mmol/L (136-145)
[2016-06-14 12:53] LABS: ALBUMIN 2.9 g/dL (3.4-5.0); ALK PHOS 121 U/L (46-116); ALT (SGPT) 11 U/L (14-59); AST (SGOT) 9 U/L (15-37); DIRECT BILIRUBIN < 0.1 mg/dL (0.0-0.2); MAGNESIUM 2.3 mg/dL (1.8-2.4); TOTAL BILIRUBIN 0.1 mg/dL (0.2-1.0); TOTAL PROTEIN 6.1 g/dL (6.4-8.2)
[2016-06-14] MEDS ORDERED: FENTANYL PF 100 MCG/2 ML VIAL. IV ONE (13:00)
[2016-06-14] MEDS ORDERED: ONDANSETRON PF 4 MG/2 ML VIAL. IV ONE (13:15)
[2016-06-14 14:10] LABS: CKMB MASS 1.9 ng/mL (0.0-3.6); CREATINE KINASE 42 U/L (26-192)
--- NOTE | 2016-06-14 15:57 | PDOC2 ---
CARDIAC CONSULT DATE OF CONSULT Date of Consult DATE: 06/14/16 TIME: 15:46 REASON FOR CONSULT Reason for Consult: Dizziness possible arrhythmia REFERRING PHYSICIAN Referring Physician: Dr. Grey SOURCE Source: Chart review, Patient HISTORY OF PRESENT ILLNESS HISTORY OF PRESENT ILLNESS This is a 56 yo female, well known to use from previous cardiac history, who presented secondary to LifeVest device providing warning signal prior to discharge x2 this morning. Patient reports she woke up feels well around 8 am and took her medications. Approximately 30 mins later, began to feel dizzy and nauseated. Symptoms seemed to subside for awhile. Around 10am, patient reports symptoms returned. While she was at [place], began short of breath. LifeVest gave initial warning signal, which patient paused as she was "direct to do." About 5 minutes later, device gave another warning signal, which she again paused to prevent discharge while she was conscious. Patient reports she then sat down because she "didn't feel right" and took 4 baby aspirins prior coming into the emergency room for further evaluation. Patient reports she had contacted [employer] this morning because she receives approximately 2 warning signal per week from LifeVest device. These generally occur when patient is sitting down resting and feeling well. Not further action was recommend by [employer]. Patient additionally reports that she feel dizzy and fatigued daily after taking morning medications. This has been ongoing since beginning [facility]. Denies any chest pain , palpitations, diaphoresis, orthopnea, LE edema, or recent illness/fevers. Reports compliance with medications. PAST MEDICAL HISTORY Past Medical History Cardiovascular: HTN, DE, CAD- s/p PCI/stent to RCA, cardiac arrest, Hyperlipidemia, ICM- LVEF 25%, Other (PAD with previous MIXOLOGIST/stent to NAN; MIXOLOGIST to in-stent restonsis of REIA; atherectomy/MIXOLOGIST/stent to RT SFA) GI: Other (gastric ulcer- 2011) Heme/Onc: Anemia NOS, Other (lumpectomy for breast lump - 2001) Hepatobiliary: Other (pancreatitis) ENT: Other (proliferative changes in both eyes; S/P laser surgery) Renal/: Chronic renal insuff (stage 3 - 4) Endocrine: Diabetes (type II) PAST SURGICAL HISTORY Past Surgical History Also see PM Appendectomy, Tubal Ligation, Tonsillectomy, Other (left oopherectomy) FAMILY HISTORY Family History Coronary Artery Disease (mother), Diabetes (mother), Hypertension (father), Stroke (mother) SOCIAL HISTORY Social History Smoke: <1 pack per day ALCOHOL: none Drugs: None Lives: with Family Domestic Violence: Neg CURRENT MEDICATIONS CURRENT MEDICATIONS Current Medications Medications (Trade) Dose Ordered Sig/Suhas Route PRN Reason Start Time Stop Time Status Last Admin Dose Admin Fentanyl Citrate (Fentanyl 2ml Vial) 50 mcg 1X ONCE IV 06/14/16 13:00 06/14/16 13:01 DC 06/14/16 13:06 Ondansetron HCl (Zofran) 4 mg 1X ONCE IV 06/14/16 13:15 06/14/16 13:16 DC 06/14/16 13:26 ALLERGIES ALLERGIES: Coded Allergies: codeine (Verified Allergy, Intermediate, Swelling- Tolerates [place], 05/30/16 ) varenicline (Verified Adverse Reaction, Intermediate, Anxiety, 05/30/16) states she 'goes out of my mind' ROS Review of System 14 point ROS conducted with pertinent positives noted above in HPI. PHYSICAL EXAM PHYSICAL EXAM General: Alert, Oriented X3, Cooperative, No acute distress HEENT: Atraumatic, Mucous membr. moist/pink Lungs: Clear to auscultation, Normal air movement Heart: Regular rate, Normal S1, Normal S2, Other (2/6 systolic murmur) Abdomen: Soft, No tenderness Extremities: No edema, Normal pulses Skin: No breakdown, No significant lesion Neuro: Normal speech, Normal tone, Sensation intact Psych/Mental Status: Mental status NL, Mood NL MUSCULOSKELETAL: Full range of motion without pain VITALS VITALS Vital Signs Date Time Temp Pulse Resp B/P Pulse Ox O2 Delivery O2 Flow Rate FiO2 06/14/16 14:59 86 12 131/64 99 Room Air 06/14/16 11:25 97.8 97.8 LABS Lab: Laboratory Tests Test 06/14/16 12:00 06/14/16 12:30 White Blood Count 8.9x10^3/uL (4.0-11.0) Red Blood Count 3.40x10^6/uL (3.50-5.40) Hemoglobin 10.2g/dL (12.0-15.5) Hematocrit 30.6% (36.0-47.0) Mean Corpuscular Volume 90fL (79-100) Mean Corpuscular Hemoglobin 30pg (25-35) Mean Corpuscular Hemoglobin Concent 33g/dL (31-37) Red Cell Distribution Width 14.7% (11.5-14.5) Platelet Count 353x10^3/uL (140-400) Neutrophils (%) (Auto) 63% (31-73) Lymphocytes (%) (Auto) 28% (24-48) Monocytes (%) (Auto) 5% (0-9) Eosinophils (%) (Auto) 3% (0-3) Basophils (%) (Auto) 1% (0-3) Neutrophils # (Auto) 5.6x10^3uL (1.8-7.7) Lymphocytes # (Auto) 2.5x10^3/uL (1.0-4.8) Monocytes # (Auto) 0.4x10^3/uL (0.0-1.1) Eosinophils # (Auto) 0.3x10^3/uL (0.0-0.7) Basophils # (Auto) 0.1x10^3/uL (0.0-0.2) Prothrombin Time 12.5SEC (11.7-14.0) Prothromb Time International Ratio 1.0 (0.8-1.1) Sodium Level 135mmol/L (136-145) Potassium Level 5.3mmol/L (3.5-5.1) Chloride Level 100mmol/L (98-107) Carbon Dioxide Level 25mmol/L (21-32) Anion Gap 10 (6-14) Blood Urea Nitrogen 36mg/dL (7-20) Creatinine 2.8mg/dL (0.6-1.0) Estimated GFR (Cockcroft-Gault) 17.6 Glucose Level 230mg/dL (70-99) Calcium Level 8.5mg/dL (8.5-10.1) Magnesium Level 2.3mg/dL (1.8-2.4) Total Bilirubin 0.1mg/dL (0.2-1.0) Direct Bilirubin < 0.1mg/dL (0.0-0.2) Aspartate Amino Transf (AST/SGOT) 9U/L (15-37) Alanine Aminotransferase (ALT/SGPT) 11U/L (14-59) Alkaline Phosphatase 121U/L (46-116) Creatine Kinase 42U/L (26-192) Creatine Kinase MB (Mass) 1.9ng/mL (0.0-3.6) Creatine Kinase MB Relative Index % (0-4) Troponin I Quantitative < 0.017ng/mL (0.000-0.055) ZV-[place]-L-Type Natriuretic Peptide 41164mn/mL (0-124) Total Protein 6.1g/dL (6.4-8.2) Albumin 2.9g/dL (3.4-5.0) Thyroid Stimulating Hormone (TSH) 1.338uIU/mL (0.358-3.74) ECHOCARDIOGRAM ECHOCARDIOGRAM DATE: 05/13/16 1719 <Conclusion> The left ventricle is normal size. Left ventricle ejection fraction is severely impaired. The Ejection Fraction is <20%. There is mild concentric left ventricular hypertrophy. There is no significant aortic valvular stenosis. Doppler and Color Flow revealed no significant aortic regurgitation. Doppler and Color Flow revealed trace to mild mitral regurgitation. Doppler and Color Flow revealed mild tricuspid regurgitation. The PA pressure was estimated at 15 mmHg. DATE: 05/24/16 1408 <Conclusion> The left ventricular systolic function is moderate to severely diminished. LVEF 25% There is severe hypokinesis of the distal 2/3rd of the LV with prominent wall motion abnormalities noted in the infero-septum, apex and anterior marks. The lateral wall is grossly normal. Cannot rule out a mural apical LV thrombus. There is small left pleural effusion. STRESS TEST STRESS TEST STRESS TEST Conclusion 1. Regadenoson cardioisotope stress test showed diaphragmatic attenuation artifact without any evidence of ischemia. 2. Moderate global left ventricular dysfunction with ejection fraction calculated at 36%. 3. Low to Intermediate risk for cardiac events. DATE: 05/05/16 1304 HEART CATH HEART CATH HEART CATH Findings. Hemodynamics. LV 108/18, aortic root 104/52. Coronaries. Left main. The left main had no lesions. Left anterior descending. The LAD had a mid 50% lesion and diffuse mid disease in the 35% range. Left circumflex. The left circumflex had a mid 30-35% lesion. It had diffuse distal small vessel disease. Right coronary artery. The right coronary artery had diffuse mid disease of 40% . It also had a mid to distal subtotal lesion. <Conclusion> Severe single-vessel coronary disease with a subtotal lesion in the right coronary artery. Diffuse moderate disease in the LAD and left circumflex system. Successful bare metal stenting of the subtotal right coronary artery lesion with a 0% residual. DATE: 05/13/16 2374 ASSESSMENT/PLAN ASSESSMENT/PLAN 1. Possible arrhythmia last device download was this morning LifeVest benefits representative contacted to have recent events on device downloaded. If not significant arrhythmia is identified, may discharge from a cardiac standpoint. Mg WNL If true arrhythmia is identified, consider antiarrhythmic agent 2. CAD stable. CP free recent cath with PCI/BMS to RCA. Diffuse moderate disease of LAD and LCx as noted above. continue with secondary prevention including DAPT. 3. Chronic systolic heart failure Recent 2-D echo showed LVEF 25% Appears clinically compensated. continue with optimization therapy. Lasix PRN CR near baseline at 2.8. 4. Ischemic cardiomyopathy LVEF remains depressed on repeat echo Plan for outpatient 2-D echocardiogram in 2-3 months to evaluate the need for AICD implantation. resume LifeVest upon discharge 5. Peripheral vascular disease s/p percutaneous intervention, presently without any claudication symptoms. 6. Hypertension: normotensive. continue with current therapy 7. Diabetes mellitus type 2 per PCP 8. Chronic kidney disease 9. Hyperkalemia per PCP Problems: CRISS BENTON APRN Jun 14, 2016 15:56
[2016-06-14 17:01] VITALS: BP 123/64
== END 2016-06-14 17:05 | disposition home or self-care (01) ==
LOC: ER 11:25
DX: R42 Dizziness and giddiness (principal); R51 Headache; R06.02 Shortness of breath; I25.10 Atherosclerotic heart disease of native coronary artery without angina pectoris; E11.22 Type 2 diabetes mellitus with diabetic chronic kidney disease; I12.9 Hypertensive chronic kidney disease with stage 1 through stage 4 chronic kidney disease, or unspecified chronic kidney disease; N18.9 Chronic kidney disease, unspecified; I25.2 Old myocardial infarction; Z90.49 Acquired absence of other specified parts of digestive tract; Z95.5 Presence of coronary angioplasty implant and graft; Z90.89 Acquired absence of other organs; Z88.5 Allergy status to narcotic agent; Z88.8 Allergy status to other drugs, medicaments and biological substances
CPT/HCPCS: 36415; 71010; 80048; 80076; 82553; 83735; 83880; 84443; 84484; 85027; 85610; 93005; 96374; 96375; 99285; J2405; J3010

== ENCOUNTER 2016-07-26 01:02 | Inpatient (IN) | payer BC ==
[~2016-07-26] VITALS: Ht 157.5 cm; Wt 55.4 kg
--- NOTE | 2016-07-26 01:20 | PHYS DOC ---
Past Medical History Past Medical History: CAD, Diabetes-Type II, Hypertension, AR, Renal Disease Additional Past Medical Histor: PVD,STEMI 04/2016 W STENT X 1 PLACEMENT RAC Past Surgical History: Appendectomy, Tonsillectomy, Other Additional Past Surgical Histo: Fem pop, LEFT OVARY REMOVED Alcohol Use: None Drug Use: None Adult General Chief Complaint Chief Complaint: CHEST PAIN HPI HPI This is a 56-year-old female with known history of CAD and previous cardiac arrest that has required stents in the past. She states this occurred back in April 2016. She states around 11:30 PM earlier tonight she developed extensive chest pain while walking her dog. EMS was called and administered 2 nitroglycerin and a full aspirin with near complete resolution of her symptoms. Upon arrival, she is in no significant distress. She additionally has history of hypertension and diabetes. She rates her pain a 1 out of 10. She denies any shortness of breath. She denies any nausea or vomiting. He is currently being evaluated for a defibrillator placement. She has arrived with her LifeVest. Review of Systems Review of Systems Constitutional: Denies fever or chills [] Eyes: Denies change in visual acuity, redness, or eye pain [] HENT: Denies nasal congestion or sore throat [] Respiratory: Denies cough or shortness of breath [] Cardiovascular: No additional information not addressed in HPI [] GI: Denies abdominal pain, nausea, vomiting, bloody stools or diarrhea [] : Denies dysuria or hematuria [] Musculoskeletal: Denies back pain or joint pain [] Integument: Denies rash or skin lesions [] Neurologic: Denies headache, focal weakness or sensory changes [] Endocrine: Denies polyuria or polydipsia [] Current Medications Current Medications Current Medications Medications (Trade) Dose Ordered Sig/Suhas Start Time Stop Time Status Last Admin Dose Admin Acetaminophen (Tylenol) 650 mg PRN Q4HRS PRN 07/26/16 02:15 07/27/16 02:14 Nitroglycerin (Nitrostat) 0.4 mg PRN Q5MIN PRN 07/26/16 02:15 07/27/16 02:14 07/26/16 02:20 0.4 MG Allergies Allergies Allergies Coded Allergies Type Severity Reaction Last Updated Verified codeine Allergy Intermediate Swelling- Tolerates [place] 05/30/16 Yes varenicline Adverse Reaction Intermediate Anxiety 05/30/16 Yes Physical Exam Physical Exam Constitutional: Well developed, well nourished, no acute distress, non-toxic appearance. [] HENT: Normocephalic, atraumatic, bilateral external ears normal, oropharynx moist, no oral exudates, nose normal. [] Eyes: PERRLA, EOMI, conjunctiva normal, no discharge. [] Neck: Normal range of motion, no tenderness, supple, no stridor. [] Cardiovascular:Heart rate regular rhythm, no murmur [] Lungs & Thorax: Bilateral breath sounds clear to auscultation [] Abdomen: Bowel sounds normal, soft, no tenderness, no masses, no pulsatile masses. [] Skin: Warm, dry, no erythema, no rash. [] Back: No tenderness, no CVA tenderness. [] Extremities: No tenderness, no cyanosis, no clubbing, ROM intact, no edema. [] Neurologic: Alert and oriented X 3, normal motor function, normal sensory function, no focal deficits noted. [] Psychologic: Affect normal, judgement normal, mood normal. [] Current Patient Data Vital Signs Vital Signs Date Time Temp Pulse Resp B/P Pulse Ox O2 Delivery O2 Flow Rate FiO2 07/26/16 02:20 76 151/72 07/26/16 01:10 98.0 16 100 Room Air 98.0 Lab Values Laboratory Tests Test 07/26/16 01:35 07/26/16 01:39 White Blood Count 8.4x10^3/uL (4.0-11.0) Red Blood Count 3.43x10^6/uL (3.50-5.40) L Hemoglobin 10.0g/dL (12.0-15.5) L Hematocrit 30.9% (36.0-47.0) L Mean Corpuscular Volume 90fL (79-100) Mean Corpuscular Hemoglobin 29pg (25-35) Mean Corpuscular Hemoglobin Concent 33g/dL (31-37) Red Cell Distribution Width 15.0% (11.5-14.5) H Platelet Count 383x10^3/uL (140-400) Neutrophils (%) (Auto) 60% (31-73) Lymphocytes (%) (Auto) 32% (24-48) Monocytes (%) (Auto) 5% (0-9) Eosinophils (%) (Auto) 2% (0-3) Basophils (%) (Auto) 1% (0-3) Neutrophils # (Auto) 5.0x10^3uL (1.8-7.7) Lymphocytes # (Auto) 2.7x10^3/uL (1.0-4.8) Monocytes # (Auto) 0.5x10^3/uL (0.0-1.1) Eosinophils # (Auto) 0.2x10^3/uL (0.0-0.7) Basophils # (Auto) 0.1x10^3/uL (0.0-0.2) Sodium Level 134mmol/L (136-145) L Potassium Level 4.8mmol/L (3.5-5.1) Chloride Level 100mmol/L (98-107) Carbon Dioxide Level 24mmol/L (21-32) Anion Gap 10 (6-14) Blood Urea Nitrogen 47mg/dL (7-20) H Creatinine 2.6mg/dL (0.6-1.0) H Estimated GFR (Cockcroft-Gault) 19.2 Glucose Level 258mg/dL (70-99) H Calcium Level 8.8mg/dL (8.5-10.1) Troponin I Quantitative 0.054ng/mL (0.000-0.055) POC Troponin I 0.06ng/ml (<0.08) Laboratory Tests 07/26/16 01:35 Laboratory Tests 07/26/16 01:35 EKG EKG EKG as interpreted by me reveals some LVH with strain pattern and T-wave abnormalities in the high lateral leads had been there previously. Rhythm is a sinus rhythm with a rate of 82 bpm. EKG does not meet STEMI criteria. Radiology/Procedures Radiology/Procedures One view of the chest as interpreted by me does not reveal an acute cardiopulmonary process. Course & Med Decision Making Course & Med Decision Making Pertinent Labs and Imaging studies reviewed. (See chart for details) 56-year-old female who has had an episode of chest pain prior to arrival will have complete cardiac workup. Her EKG and chest x-ray appear unchanged from before. I discussed the need for admission with the hospitalist, Dr. Taveras, who agrees except the patient for further evaluation treatment. Her blood work at this time indicates a troponin of 0.06. This will be trended during her hospital stay. The rest of her laboratory workup was unremarkable. She was admitted without incident. Dragon Disclaimer Dragon Disclaimer This electronic medical record was generated, in whole or in part, using a voice recognition dictation system. Departure Departure Impression: Primary Impression: Chest pain Disposition: ADMITTED INPATIENT Admitting Physician: Other Condition: STABLE Referrals: WILLA TAVERAS MD (PCP) ARMIDA CASTRO DO Jul 26, 2016 01:20
[2016-07-26 01:48] LABS: BASO # 0.1 x10^3/uL (0.0-0.2); BASO % 1 % (0-3); EOS % 2 % (0-3); HEMATOCRIT 30.9 % (36.0-47.0); LYMPH # 2.7 x10^3/uL (1.0-4.8); LYMPH % 32 % (24-48); MEAN CORPUSCULAR HEMOGLOBIN 29 pg (25-35); MEAN CORPUSCULAR HGB CONC 33 g/dL (31-37); MEAN CORPUSCULAR VOLUME 90 fL (79-100); MONO % 5 % (0-9); NEUT % 60 % (31-73); PLATELET COUNT 383 x10^3/uL (140-400); RED BLOOD COUNT 3.43 x10^6/uL (3.50-5.40); WHITE BLOOD COUNT 8.4 x10^3/uL (4.0-11.0)
[2016-07-26 01:54] LABS: CALCIUM 8.8 mg/dL (8.5-10.1); CREATININE 2.6 mg/dL (0.6-1.0); GFR 19.2; POTASSIUM 4.8 mmol/L (3.5-5.1)
[2016-07-26] MEDS ORDERED: NITROGLYCERIN SUBLINGUAL 0.4 MG BOTTLE OF 25. SL PRN (02:15)
[2016-07-26] MEDS ORDERED: ACETAMINOPHEN 325 MG TABLET. PO PRN (02:15)
[2016-07-26] MEDS ORDERED: ONDANSETRON PF 4 MG/2 ML VIAL. IV ONE (03:30)
[2016-07-26 05:00] VITALS: BP 149/73
--- NOTE | 2016-07-26 05:27 | ACF ---
Admit Criteria Forms Admit Criteria Forms Admit Criteria Forms CHEST PAIN Clinical Indications for Admission to Inpatient Care (Place 'X' for any and all applicable criteria): Admission is indicated for chest pain and ANY ONE of the following(1)(2)(3)(4)(5 ): [ ]I. Angina with acute coronary syndrome (Also use Myocardial Infarction or Angina guideline) [ ]II. Hemodynamic instability [ ]III. Angina needing acute intervention as indicated by ALL of the following( 11)(12): [ ]a) Unstable angina is present as indicated by angina that is ANY ONE of the following: [ ]i) New onset [ ]ii) Nocturnal [ ]iii) Prolonged at rest [ ]iv) Progressive [ ]b) Angina warrants acute intervention as indicated by ANY ONE of the following: [ ]i) Recurrent angina (e.g, not responding as previously to treatment) [ ]ii) Angina at rest or with low-level activities despite initial medical therapy [ ]iii) New or presumably new ST-segment depression on ECG [ ]iv) Signs or symptoms of heart failure (eg, dyspnea, pulmonary edema) [ ]v) New or worsening mitral regurgitation [ ]vi) Hemodynamic instability [ ]vii) Dangerous arrhythmia (eg, sustained ventricular tachycardia) [ ]viii) History of percutaneous coronary intervention within 6 months [ ]ix) History of coronary artery bypass graft surgery [ ]x) AGUSTIN risk score of 2 or greater[A] [ ]xi) History of Diabetes(14) [ ]xii) High-risk cardiac ischemia findings on noninvasive testing (e.g, echocardiogram, treadmill testing, nuclear scan) [ ]xiii) Chronic renal insufficiency (ie, estimated GFR less than 60 mL/min/1.732m) [ ]xiv) Left ventricular ejection fraction less than 40% [ ]IV. Evidence of LA (eg, cardiac biomarkers positive, ST-segment elevation on ECG) also use Myocardial Infarction Criteria Form. [ ]V. Pulmonary edema [ ]. Respiratory distress [ ]VII. Chest pain indicative of serious diagnosis other than coronary artery disease (eg, aortic dissection) [ ]VIII. Contraindications and/or Inappropriate clinical situations for Observational Care in patients with Chest Pain, when ANY ONE of the following is required: [ ]a) Patient with risk factor for pulmonary embolism, acute coronary syndrome and myocardial infarction (18) [ ]b) Patient with Pulmonary embolism require an average LOS of 4.3 days, therefore emergency department observation management is inappropriate 18,23 [ ]c) Painful condition/s in the elderly, have the highest rate of recidivism after emergency department observation management (10.8%) 20,21,22 [ ]d) Elevated cardiac biomarker requires intensive and exhaustive care (19) [X]IX. General contraindications and/or Inappropriate clinical situations for Observational Care in patients with Chest Pain, when ANY ONE of the following is required: [X]a) Prediction of prolongation of LOS based on ANY ONE of the following may be considered as a contraindication for observational care 2, 3, 4, 5, 6, 7, 8, 9, 10, 11 [ ]i) Age > 65 yrs. [ ]ii) Patient arriving by ambulance [ ]iii) Patient with high acuity [X]iv) Patient requiring vital sign monitoring [ ]v) Patient on IV medication [ ]b) Systolic blood pressures 180mmHg 3,12 [ ]c) Patient with altered mental status including delirium and other alteration of consciousness, (3) [ ]d) Patient whose discharge disposition will be to a penitentiary home or rehabilitation home should not be managed in Emergency Department Observation Unit. CMS rule requires 3 days hospital stay before such placement. 3,13 [ ]e) Patient with failure to thrive due to broad array of etiologies 3,16,17 [ ]f) Inability to ambulate 3,14 Extended stay beyond goal length of stay may be needed for (1)(28): [ ]a) Specific condition diagnosed after evaluation (eg, pulmonary embolism, aortic dissection) [ ]b) Unstable angina [ ]c) Continued suspicion of acute coronary syndrome with inability to complete needed cardiac evaluation (eg, patient clinically unable to undergo stress testing) [ ]d) Myocardial infarction (Contents from ANGINA and CHEST PAIN clinical indications for admission to inpatient care have been integrated in this form) The original [employer] content created by [employer] has been revised. The portions of the content which have been revised are identified through the use of italic text or in bold, and [facility] has neither reviewed nor approved the modified material. All other unmodified content is copyright [employer] [facility]. Please see references footnoted in the original [employer] [facility] edition 2016 RILEY STERLING Jul 26, 2016 05:26
--- NOTE | 2016-07-26 07:27 | EKG ---
[facility] [address] [place] [address] Test Date: 2016-07-26 Test Time: 01:11:26 Pat Name: DRISS RIZO Department: Room: Gender: F Occ Therapist: : 1960 Requested By: ARMIDA CASTRO Order Number: [id number] Reading MD: Measurements Intervals [place] Rate: 82 P: 33 NE: 182 QRS: 0 QRSD: 100 T: 146 QT: 368 QTc: 433 Interpretive Statements No previous ECG available for comparison
--- NOTE | 2016-07-26 07:27 | EKG ---
[facility] [address] [place] [address] Test Date: 2016-07-26 Test Time: 03:27:34 Pat Name: DRISS RIZO Department: Room: Gender: F Crowning Inspector: : 1960 Requested By: ARMIDA CASTRO Order Number: [id number] Reading MD: Measurements Intervals [place] Rate: 81 P: 34 DE: 184 QRS: -12 QRSD: 102 T: 146 QT: 378 QTc: 445 Interpretive Statements No previous ECG available for comparison
[2016-07-26 07:28] VITALS: BP 141/67
--- NOTE | 2016-07-26 07:44 | RAD ---
Portable chest, 07/26/2016: History: Chest pain Comparison is made to a study from 06/14/2016. The heart size and pulmonary vascularity are normal. No pulmonary infiltrates are seen. There is no evidence of pleural fluid. IMPRESSION: No acute cardiopulmonary abnormality is detected.
--- NOTE | 2016-07-26 08:58 | PDOC ---
Provider Note Provider Note [id number] WILLA MABRY MD Jul 26, 2016 08:58
[2016-07-26] MEDS ORDERED: CARVEDILOL 6.25 MG TABLET PO SCH (09:00)
[2016-07-26] MEDS ORDERED: ISOSORBIDE MONONITRATE ER 30 MG TAB.ER.24H PO SCH (09:00)
[2016-07-26] MEDS ORDERED: CLOPIDOGREL BISULFATE 75 MG TABLET PO SCH (09:00)
[2016-07-26] MEDS ORDERED: PANTOPRAZOLE 40 MG TABLET. PO SCH (09:00)
[2016-07-26] MEDS ORDERED: DEXTROSE 50% 25 GM / 50ML DISP.SYRIN. IV PRN (09:00)
[2016-07-26] MEDS ORDERED: FUROSEMIDE 40 MG TABLET PO PRN (09:00)
[2016-07-26] MEDS ORDERED: POLYETHYLENE GLYCOL 3350 17 GM PACKET. PO PRN (09:00)
[2016-07-26] MEDS ORDERED: INSULIN DETEMIR 300 UNITS/3 ML INSULN.PEN. SQ SCH (09:00)
[2016-07-26] MEDS ORDERED: ASPIRIN ENTERIC COATED 81 MG TABLET.DR. PO SCH (09:00)
[2016-07-26] MEDS ORDERED: AMLODIPINE BESYLATE 10 MG TABLET PO SCH (09:00)
--- NOTE | 2016-07-26 09:20 | HP ---
ADMIT DATE: 07/26/2016 CHIEF COMPLAINT: Chest pain. HISTORY OF PRESENT ILLNESS: The patient is a 56-year-old white female with known ischemic cardiomyopathy and coronary artery disease with recent stent placement and poorly controlled type 2 diabetes mellitus. She also has a degree of CKD in the range of 3-4 when last seen was stable about 6 weeks ago. She developed some chest pain at rest and came to the ER. Troponins and EKG showed no acute change. She is feeling okay now. She has had intolerance to lisinopril in the past based on last ____ and she is off that medication. PAST MEDICAL HISTORY: Well documented in the old record. ALLERGIES: CODEINE AND CHANTIX. SOCIAL HISTORY: She states she no longer smokes, is a nondrinker. She is . Not physically active, not currently employed because of disability. FAMILY HISTORY: Unremarkable. REVIEW OF SYSTEMS: No other problems. OBJECTIVE: ENT: All within normal limits. NECK: Bilateral carotid bruits, no masses or thyromegaly. LUNGS: Clear, decreased breath sounds. CARDIOVASCULAR: Regular rate. No irregular beat or murmur. ABDOMEN: Soft, benign and nontender. EXTREMITIES: 2+ clubbing. Poor pedal pulses. No edema. No joint or skin lesions. NEUROLOGIC: Physiologic and nonfocal. GENITOURINARY AND RECTAL: Deferred. ASSESSMENT: 1. Dilated ischemic cardiomyopathy appears to be stable. 2. Chest pain in multifactorial, certainly heart disease contributing. 3. Chronic kidney disease 3/4 secondary to poorly controlled diabetes, stable. 4. Type 2 insulin-dependent diabetes, poor control, but improving recently. 5. Anemia of chronic disease. PLAN: As ordered. WILLA MABRY MD DR: TAQUERIA/minnie JOB#: [id number] / [id number]
[2016-07-26 10:19] VITALS: BP 121/57
--- NOTE | 2016-07-26 11:45 | PDOC2 ---
CRISS BENTON RETAIL SOLAR ADVISOR 07/26/16 1145: CARDIAC CONSULT DATE OF CONSULT Date of Consult DATE: 07/26/16 TIME: 11:30 REASON FOR CONSULT Reason for Consult: Chest Pain REFERRING PHYSICIAN Referring Physician: Dr. Regalado SOURCE Source: Chart review, Patient HISTORY OF PRESENT ILLNESS HISTORY OF PRESENT ILLNESS This is a 56 yo female, who recently underwent PCI/stent to RCA in the setting of non-STEMI and cardiac arrest, who presented with complaints of chest pain. Patient reports she was walking dog yesterday when she developed chest pressure. Located in her central chest. Non-radiating. Associated with GRIFFITH and bilateral arm pain. Denies any palpitations, dizziness, diaphoresis, SOA, or nausea/vomiting. Additional h/o ICM- presently wearing Life Vest. Has been complaints with medications although reports she forgot to take medications yesterday morning but did take them in them afternoon when her spouse arrived home. PAST MEDICAL HISTORY Past Medical History Cardiovascular: HTN, ID, CAD- s/p PCI/stent to RCA, cardiac arrest, Hyperlipidemia, ICM- LVEF 25%, Other (PAD with previous BLOOD BANK TECHNICIAN/stent to NAN; BLOOD BANK TECHNICIAN to in-stent restonsis of REIA; atherectomy/BLOOD BANK TECHNICIAN/stent to RT SFA) GI: Other (gastric ulcer- 2011) Heme/Onc: Anemia NOS, Other (lumpectomy for breast lump - 2001) Hepatobiliary: Other (pancreatitis) ENT: Other (proliferative changes in both eyes; S/P laser surgery) Renal/: Chronic renal insuff (stage 3 - 4) Endocrine: Diabetes (type II) PAST SURGICAL HISTORY Past Surgical History Also see PMH Appendectomy, Tubal Ligation, Tonsillectomy, Other (left oopherectomy) FAMILY HISTORY Family History Coronary Artery Disease (mother), Diabetes (mother), Hypertension (father), Stroke (mother) SOCIAL HISTORY Social History Smoke: <1 pack per day ALCOHOL: none Drugs: None Lives: with Family Domestic Violence: Neg CURRENT MEDICATIONS CURRENT MEDICATIONS Current Medications Medications (Trade) Dose Ordered Sig/Suhas Route PRN Reason Start Time Stop Time Status Last Admin Dose Admin Acetaminophen (Tylenol) 650 mg PRN Q4HRS PRN PO FEVER 07/26/16 02:15 07/27/16 02:14 07/26/16 03:21 Nitroglycerin (Nitrostat) 0.4 mg PRN Q5MIN PRN SL CHEST PAIN 07/26/16 02:15 07/27/16 02:14 07/26/16 02:20 Ondansetron HCl (Zofran) 4 mg 1X ONCE IV 07/26/16 03:30 07/26/16 03:34 DC 07/26/16 03:27 Amlodipine Besylate (Norvasc) 10 mg DAILY PO 07/26/16 09:00 07/26/16 09:06 Aspirin (Ecotrin) 81 mg DAILY PO 07/26/16 09:00 07/26/16 09:06 Carvedilol (Coreg) 6.25 mg BIDWMEALS PO 07/26/16 09:00 07/26/16 09:06 Clopidogrel Bisulfate (Plavix) 75 mg DAILY PO 07/26/16 09:00 07/26/16 09:05 Isosorbide Mononitrate (Imdur) 30 mg DAILY PO 07/26/16 09:00 07/26/16 09:05 Pantoprazole Sodium (Protonix) 40 mg DAILYAC PO 07/26/16 09:00 07/26/16 09:05 Insulin Detemir (Levemir) 15 units BID SQ 07/26/16 09:00 07/26/16 09:10 ALLERGIES ALLERGIES: Coded Allergies: codeine (Verified Allergy, Intermediate, Swelling- Tolerates [place], 05/30/16 ) varenicline (Verified Adverse Reaction, Intermediate, Anxiety, 05/30/16) states she 'goes out of my mind' ROS Review of System 14 point ROS conducted with pertinent positives noted above in HPI. PHYSICAL EXAM PHYSICAL EXAM General: Alert, Oriented X3, Cooperative, No acute distress HEENT: Atraumatic, Mucous membr. moist/pink Lungs: Clear to auscultation, Normal air movement Heart: Regular rate, Normal S1, Normal S2, Other (2/6 systolic murmur) Abdomen: Soft, No tenderness Extremities: No edema, Normal pulses Skin: No breakdown, No significant lesion Neuro: Normal speech, Normal tone, Sensation intact Psych/Mental Status: Mental status NL, Mood NL MUSCULOSKELETAL: Full range of motion without pain VITALS VITALS Vital Signs Date Time Temp Pulse Resp B/P Pulse Ox O2 Delivery O2 Flow Rate FiO2 07/26/16 10:19 98.2 93 21 121/57 98 Room Air 98.2 LABS Lab: Laboratory Tests Test 07/26/16 01:35 07/26/16 01:39 07/26/16 08:04 White Blood Count 8.4x10^3/uL (4.0-11.0) Red Blood Count 3.43x10^6/uL (3.50-5.40) Hemoglobin 10.0g/dL (12.0-15.5) Hematocrit 30.9% (36.0-47.0) Mean Corpuscular Volume 90fL (79-100) Mean Corpuscular Hemoglobin 29pg (25-35) Mean Corpuscular Hemoglobin Concent 33g/dL (31-37) Red Cell Distribution Width 15.0% (11.5-14.5) Platelet Count 383x10^3/uL (140-400) Neutrophils (%) (Auto) 60% (31-73) Lymphocytes (%) (Auto) 32% (24-48) Monocytes (%) (Auto) 5% (0-9) Eosinophils (%) (Auto) 2% (0-3) Basophils (%) (Auto) 1% (0-3) Neutrophils # (Auto) 5.0x10^3uL (1.8-7.7) Lymphocytes # (Auto) 2.7x10^3/uL (1.0-4.8) Monocytes # (Auto) 0.5x10^3/uL (0.0-1.1) Eosinophils # (Auto) 0.2x10^3/uL (0.0-0.7) Basophils # (Auto) 0.1x10^3/uL (0.0-0.2) Sodium Level 134mmol/L (136-145) Potassium Level 4.8mmol/L (3.5-5.1) Chloride Level 100mmol/L (98-107) Carbon Dioxide Level 24mmol/L (21-32) Anion Gap 10 (6-14) Blood Urea Nitrogen 47mg/dL (7-20) Creatinine 2.6mg/dL (0.6-1.0) Estimated GFR (Cockcroft-Gault) 19.2 Glucose Level 258mg/dL (70-99) Calcium Level 8.8mg/dL (8.5-10.1) Troponin I Quantitative 0.054ng/mL (0.000-0.055) 0.044ng/mL (0.000-0.055) Bedside Troponin I 0.06ng/ml (<0.08) ECHOCARDIOGRAM ECHOCARDIOGRAM DATE: 05/13/16 1719 <Conclusion> The left ventricle is normal size. Left ventricle ejection fraction is severely impaired. The Ejection Fraction is <20%. There is mild concentric left ventricular hypertrophy. There is no significant aortic valvular stenosis. Doppler and Color Flow revealed no significant aortic regurgitation. Doppler and Color Flow revealed trace to mild mitral regurgitation. Doppler and Color Flow revealed mild tricuspid regurgitation. The PA pressure was estimated at 15 mmHg. DATE: 05/24/16 1408 <Conclusion> The left ventricular systolic function is moderate to severely diminished. LVEF 25% There is severe hypokinesis of the distal 2/3rd of the LV with prominent wall motion abnormalities noted in the infero-septum, apex and anterior marks. The lateral wall is grossly normal. Cannot rule out a mural apical LV thrombus. There is small left pleural effusion. STRESS TEST STRESS TEST Conclusion 1. Regadenoson cardioisotope stress test showed diaphragmatic attenuation artifact without any evidence of ischemia. 2. Moderate global left ventricular dysfunction with ejection fraction calculated at 36%. 3. Low to Intermediate risk for cardiac events. DATE: 05/05/16 1304 HEART CATH HEART CATH Findings. Hemodynamics. LV 108/18, aortic root 104/52. Coronaries. Left main. The left main had no lesions. Left anterior descending. The LAD had a mid 50% lesion and diffuse mid disease in the 35% range. Left circumflex. The left circumflex had a mid 30-35% lesion. It had diffuse distal small vessel disease. Right coronary artery. The right coronary artery had diffuse mid disease of 40% . It also had a mid to distal subtotal lesion. <Conclusion> Severe single-vessel coronary disease with a subtotal lesion in the right coronary artery. Diffuse moderate disease in the LAD and left circumflex system. Successful bare metal stenting of the subtotal right coronary artery lesion with a 0% residual. DATE: 05/13/16 1745 ASSESSMENT/PLAN ASSESSMENT/PLAN 1. Chest Pain, resolved troponin series normal- AMI ruled out EKG without any significant acute changes by comparison recent cath with PCI/BMS to RCA. Diffuse moderate disease of LAD and LCx as noted above. had breakfast this morning- wanting to go home. Outpatient stress test schedule next month, will expedite. continue with secondary prevention including DAPT. 2. Chronic systolic heart failure Recent 2-D echo showed LVEF 25% Appears clinically compensated. continue with optimization therapy. Lasix PRN Cr near baseline No JOSEPHINE/ARB with RI 3. Ischemic cardiomyopathy LVEF remains depressed on repeat echo Outpatient echo scheduled for next months to evaluate need for AICD implantation. continue LifeVest 5. Peripheral vascular disease s/p percutaneous intervention, presently without any claudication symptoms. 6. Hypertension: controlled. Continue current therapy 7. Diabetes mellitus type 2: Treat per IM 8. Chronic kidney disease Problems: ZO ALCARAZ MD 07/27/16 0544: CARDIAC CONSULT ALLERGIES ALLERGIES: Coded Allergies: codeine (Verified Allergy, Intermediate, Swelling- Tolerates [place]an[place], 05/30/16 ) varenicline (Verified Adverse Reaction, Intermediate, Anxiety, 05/30/16) states she 'goes out of my mind' ASSESSMENT/PLAN ASSESSMENT/PLAN Patient seen and examined 07/26/16. Agree with POLARITY TESTER's assessment and plan. Patient with history of CAD, ischemic cardiomyopathy on Lifevest and PAD presented with atypical CP, currently resolved. ID ruled out. Plan for outpatient stress test and echo as previously planned. OK for DC from our standpoint. Thank you for your consultation. Problems: CRISS BENTON APRN Jul 26, 2016 11:45 ZO ALCARAZ MD Jul 27, 2016 05:44
[2016-07-26 15:00] VITALS: BP 128/63
--- NOTE | 2016-07-27 02:32 | DS ---
DATE OF DISCHARGE: 07/26/2016 HOSPITAL SUMMARY: A 56-year-old white female with known ischemic cardiomyopathy and other problems, came in with chest pain. EKGs and troponins showed no change and creatinine was basically the same as before along with rest of her lab work. She was seen by Dr. Harris in outpatient, plans were made for stress test and she is comfortable to be followed as an outpatient. FINAL DIAGNOSES: 1. Chest pain. 2. Ischemic cardiomyopathy. 3. Chronic kidney disease 3. 4. Type 2 insulin-dependent diabetes mellitus. OPERATIONS, PROCEDURES, COMPLICATIONS: None. CONSULTATION: Dr. Harris. DISPOSITION: Continue all home meds as the same, remains off the lisinopril as she was intolerant of JOSEPHINE inhibitors. Office followup with Dr. Harris is scheduled and Dr. Taveras is scheduled. PROGNOSIS: Good. WILLA TAVERAS MD DR: TAQUERIA/minnie JOB#: [id number] / [id number]
== END 2016-07-26 17:55 | disposition home or self-care (01) | DRG 303 ==
LOC: ER 01:02 → 2 SOUTH 01:18
PROVIDERS: ADMIT Family Medicine; ATTEND Family Medicine
DX: I25.10 Atherosclerotic heart disease of native coronary artery without angina pectoris (principal); N18.4 Chronic kidney disease, stage 4 (severe); I13.0 Hypertensive heart and chronic kidney disease with heart failure and stage 1 through stage 4 chronic kidney disease, or unspecified chronic kidney disease; I50.22 Chronic systolic (congestive) heart failure; I42.0 Dilated cardiomyopathy; E78.5 Hyperlipidemia, unspecified; D63.8 Anemia in other chronic diseases classified elsewhere; E11.22 Type 2 diabetes mellitus with diabetic chronic kidney disease; E11.65 Type 2 diabetes mellitus with hyperglycemia; E11.51 Type 2 diabetes mellitus with diabetic peripheral angiopathy without gangrene; I25.5 Ischemic cardiomyopathy; Z79.4 Long term (current) use of insulin; Z82.3 Family history of stroke; Z82.49 Family history of ischemic heart disease and other diseases of the circulatory system; Z83.3 Family history of diabetes mellitus; Z87.891 Personal history of nicotine dependence; Z90.49 Acquired absence of other specified parts of digestive tract; Z98.61 Coronary angioplasty status; I25.2 Old myocardial infarction; Y93.K1 Activity, walking an animal; Z87.11 Personal history of peptic ulcer disease; Z88.5 Allergy status to narcotic agent; Z88.8 Allergy status to other drugs, medicaments and biological substances; Z98.51 Tubal ligation status; Z90.721 Acquired absence of ovaries, unilateral
CPT/HCPCS: 36415; 71010; 80048; 82947; 84484; 85027; 93005; 96374; J1815; J2405; 99285-25

== ENCOUNTER → 2016-08-17 | Outpatient (CLI) | payer BC ==
[2016-07-26 15:00] VITALS: BP 128/63
--- NOTE | 2016-08-17 18:32 | CARD ---
APPROVED REPORT EXAM: Two-dimensional and M-mode echocardiogram with Doppler and color Doppler. Other Information Quality : Good Rhythm : NSR INDICATION Cardiomyopathy RISK FACTORS Hypertension Hyperlipidemia Diabetes Smoking 2D DIMENSIONS Left Atrium(2D)3.4 (1.6-4.0cm)IVSd0.9 (0.7-1.1cm) Aortic Root(2D)2.4 (2.0-3.7cm)LVDd4.9 (3.9-5.9cm) LVOT Diameter2.0 (1.8-2.4cm)PWd1.2 (0.7-1.1cm) LVDs4.0 (2.5-4.0cm)FS (%) 17.8 % SV41.0 mlLVEF(%)27.0 (>50%) Aortic Valve AoV Peak Eliel.157.3cm/sAoV VTI32.9cm AO Peak GR.9.9mmHgLVOT Peak Eliel.66.7cm/s LVOT VTI 13.41cmAO Mean GR.5mmHg CANDY (VMAX)1.69sd0ALO (VTI)1.24cm2 Mitral Valve MV E Cwnuudfk41.1cm/sMV DECEL PLBI25tx MV A Lriyxrxt745.6cm/sMV UWP08ho E/A Ratio0.6MVA (PHT)10.56cm2 TDI E/Lateral E'12.3E/Medial E'15.6 Pulmonary Valve PV Peak Zcasyudp55.9cm/sPV Peak Grad.3mmHg Tricuspid Valve TR P. Ozjtgtmk262ld/sRAP LOGNCJEL6weBb TR Peak Gr.17mmHg Pulmonary Vein S1 Hyzxgqfc23.6cm/sD2 Esmpxkyj96.0cm/s LEFT VENTRICLE The left ventricle is normal size. There is mild concentric left ventricular hypertrophy. Left ventri mindy systolic function is severely impaired. The Ejection Fraction is 15-20%. There is severe diffuse global hypokinesis. Tissue Doppler imaging reveals moderate left ventricular diastolic dysfunction. A pical echoes consistent with trabeculae are noted. Cannot rule out associated thrombi. RIGHT VENTRICLE The right ventricle is normal size. There is normal right ventricular wall thickness. The right ventr icular systolic function is normal. ATRIA The left atrium size is normal. The right atrium size is normal. The interatrial septum is intact wit h no evidence for an atrial septal defect or patent foramen ovale as noted on 2-D or Doppler imaging. AORTIC VALVE The aortic valve is normal in structure and function. Doppler and Color Flow revealed no significant aortic regurgitation. There is no significant aortic valvular stenosis. MITRAL VALVE The mitral valve is normal in structure. There is no mitral valve stenosis. Doppler and Color-flow re vealed trace to mild mitral regurgitation. TRICUSPID VALVE The tricuspid valve is normal in structure and function. Doppler and Color Flow revealed trace to mil d tricuspid regurgitation. The PA pressure was estimated at 20 mmHg. There is no tricuspid valve sten osis. PULMONIC VALVE Doppler and Color Flow revealed no pulmonic valvular regurgitation. There is no pulmonic valvular beny nosis. GREAT VESSELS The aortic root is normal in size. Normal pulmonary venous flow (Doppler). The IVC is normal in size and collapses >50% with inspiration. PERICARDIAL EFFUSION There is a small loculated anterior pericardial effusion. Critical Notification Critical Value: No <Conclusion> Left ventricle systolic function is severely impaired. The Ejection Fraction is 15-20%. There is severe diffuse global hypokinesis. Apical echoes consistent with trabeculae are noted. Cannot rule out associated thrombi. There is a small loculated anterior pericardial effusion.
== END | disposition home or self-care (01) ==
LOC: ECHO 10:01
PROVIDERS: ATTEND Internal Medicine Cardiovascular Disease
DX: I25.5 Ischemic cardiomyopathy (principal); I10 Essential (primary) hypertension; E78.5 Hyperlipidemia, unspecified; E11.9 Type 2 diabetes mellitus without complications; I34.0 Nonrheumatic mitral (valve) insufficiency; I31.3 Pericardial effusion (noninflammatory); F17.200 Nicotine dependence, unspecified, uncomplicated
CPT/HCPCS: 93306

== ENCOUNTER 2016-10-02 03:17 | Emergency (ER) | payer BC ==
[~2016-10-02] VITALS: Ht 157.5 cm; Wt 54.4 kg
[~2016-10-02 03:17] MED LIST changes: +CARV3.122 PO; +METF-620 PO; -METF10002 PO; +POLY17PO29 PO; -POLY17PO5 PO; +TEMA30CA PO
[2016-10-02] MEDS ORDERED: IV NORMAL SALINE 1000ML BAG 1,000 ML IV ONE (03:30)
[2016-10-02 03:34] VITALS: BP 184/86
[2016-10-02] MEDS ORDERED: AZIT250T PO (03:39)
[2016-10-02] MEDS ORDERED: HYDR-971 PO (03:39)
[2016-10-02] MEDS ORDERED: IBUP-1007 PO (03:39)
--- NOTE | 2016-10-02 03:40 | PHYS DOC ---
Past Medical History Past Medical History: CAD, Diabetes-Type II, Hypertension, CO, Renal Disease Additional Past Medical Histor: PVD,STEMI 04/2016 W STENT X 1 PLACEMENT RAC Past Surgical History: Appendectomy, Tonsillectomy, Other Additional Past Surgical Histo: Fem pop, LEFT OVARY REMOVED Alcohol Use: None Drug Use: None Adult General Chief Complaint Chief Complaint: FEVER HPI HPI Patient is a 56 year old female who presents here today complaining of right ear pain. Patient complains of tactile fevers. Patient has a nausea vomiting diarrhea chest pain short of breath, cold runny nose. Patient has a history significant for an AICD placement recently. Patient has any change in hearing. Patient has any pain to her auricle. Patient has any headaches. Patient's physical exam was significant for supportive otitis media. Patient's TM was bulging on the right side with purulent material behind the TM. There is no exudates. There is no pain with movement of the auricle. There is no posterior auricular lymphadenopathy. There is no mastoid bone tenderness. She does TMs were otherwise unremarkable on the left. Patient noted trismus. Patient 's oropharynx is clear. Patient's heart was regular rate and rhythm. Lungs were clear with no wheezing rales or rhonchi. A/P #1 supportive otitis externa. Patient was given Rocephin 1 g IM as well as Zithromax to go home with. Patient was discharged with Motrin and Ultram. Patient was to follow-up with her primary care physician within one to 2 days or return the ER if she has any fevers or any further complaints. Review of Systems Review of Systems Constitutional: Denies fever or chills [] Eyes: Denies change in visual acuity, redness, or eye pain [] All other review systems are negative except as documented in history of present illness portion Current Medications Current Medications Current Medications Medications (Trade) Dose Ordered Sig/Suhas Start Time Stop Time Status Last Admin Dose Admin Acetaminophen/ Hydrocodone Bitart (Lortab 5/325) 1 tab 1X ONCE 10/02/16 04:00 10/02/16 04:03 DC 10/02/16 04:13 1 TAB Ceftriaxone Sodium (Rocephin Im) 1 gm 1X ONCE 10/02/16 04:00 10/02/16 04:03 DC 10/02/16 04:12 1 GM Ibuprofen (Motrin) 600 mg 1X ONCE 10/02/16 04:00 10/02/16 04:03 DC 10/02/16 04:12 600 MG Sodium Chloride 1,000 ml @ 1,000 mls/hr 1X ONCE 10/02/16 03:30 10/02/16 03:52 DC Allergies Allergies Allergies Coded Allergies Type Severity Reaction Last Updated Verified codeine Allergy Intermediate Swelling- Tolerates [place] 09/02/16 Yes varenicline Adverse Reaction Intermediate Anxiety 09/02/16 Yes Physical Exam Physical Exam Constitutional: Well developed, well nourished, no acute distress, non-toxic appearance. [] HENT: Normocephalic, atraumatic, bilateral external ears normal, oropharynx moist, no oral exudates, nose normal. [] Eyes: PERRLA, EOMI, conjunctiva normal, no discharge. [] Neck: Normal range of motion, no tenderness, supple, no stridor. [] Cardiovascular:Heart rate regular rhythm, no murmur [] Lungs & Thorax: Bilateral breath sounds clear to auscultation [] Abdomen: Bowel sounds normal, soft, no tenderness, no masses, no pulsatile masses. [] Skin: Warm, dry, no erythema, no rash. [] Back: No tenderness, no CVA tenderness. [] Extremities: No tenderness, no cyanosis, no clubbing, ROM intact, no edema. [] Neurologic: Alert and oriented X 3, normal motor function, normal sensory function, no focal deficits noted. [] Psychologic: Affect normal, judgement normal, mood normal. [] Current Patient Data Vital Signs Vital Signs Date Time Temp Pulse Resp B/P (MAP) Pulse Ox O2 Delivery O2 Flow Rate FiO2 10/02/16 03:34 97.9 96 18 96 Room Air 97.9 EKG EKG [] Radiology/Procedures Radiology/Procedures [] Course & Med Decision Making Course & Med Decision Making Pertinent Labs and Imaging studies reviewed. (See chart for details) [] Dragon Disclaimer Dragon Disclaimer This electronic medical record was generated, in whole or in part, using a voice recognition dictation system. Departure Departure Impression: Primary Impression: Right otitis media Disposition: 01 HOME, SELF-CARE Condition: IMPROVED Referrals: WILLA MABRY MD (PCP) Patient Instructions: Otitis Media, Adult Scripts Azithromycin (ZITHROMAX) 250 Mg Tablet 1 PKG PO UD, #6 TAB Prov: SANDRA MATHEWS MD 10/02/16 Hydrocodone/Apap 5-325 (NORCO 5-325 TABLET) 1 Each Tablet 1 TAB PO QID Y for PAIN, #10 TAB Prov: SANDRA MATHEWS MD 10/02/16 Ibuprofen (IBUPROFEN) 600 Mg Tablet 600 MG PO PRN Q6HRS Y for PAIN, #20 TAB Prov: SANDRA MATHEWS MD 10/02/16 Problem Qualifiers Primary Impression: Right otitis media Otitis media type: suppurative Chronicity: acute Recurrence: not specified as recurrent Spontaneous tympanic membrane rupture: without spontaneous rupture Qualified Codes: H66.001 - Acute suppurative otitis media without spontaneous rupture of ear drum, right ear SANDRA MATHEWS MD October 02, 2016 03:40
[2016-10-02] MEDS ORDERED: HYDROcodone/APAP 5/325MG 1 TAB TABLET PO ONE (04:00)
[2016-10-02] MEDS ORDERED: IBUPROFEN 600 MG TABLET. PO ONE (04:00)
[2016-10-02] MEDS ORDERED: cefTRIAXone IM 1 GM VIAL IM ONE (04:00)
== END 2016-10-02 04:21 | disposition home or self-care (01) ==
LOC: ER 03:17
DX: H66.91 Otitis media, unspecified, right ear (principal); E11.22 Type 2 diabetes mellitus with diabetic chronic kidney disease; I12.9 Hypertensive chronic kidney disease with stage 1 through stage 4 chronic kidney disease, or unspecified chronic kidney disease; N18.9 Chronic kidney disease, unspecified; I25.10 Atherosclerotic heart disease of native coronary artery without angina pectoris; I73.9 Peripheral vascular disease, unspecified; I25.2 Old myocardial infarction; Z90.49 Acquired absence of other specified parts of digestive tract; Z95.810 Presence of automatic (implantable) cardiac defibrillator
CPT/HCPCS: 96372; 99283; J0696

== ENCOUNTER 2016-11-24 20:34 | Emergency (ER) | payer BC ==
[~2016-11-24] VITALS: Ht 157.5 cm; Wt 55.3 kg
[~2016-11-24 20:34] MED LIST changes: +ASPI-612 PO; -ASPI81TA9 PO; +AZIT250T PO; -CLOP75TA27 PO; +CLOP75TA57 PO; +IBUP-1007 PO; -LEVO500T38 PO; +LEVO500T59 PO
[2016-11-24 20:55] VITALS: BP 164/76
--- NOTE | 2016-11-24 21:18 | RAD ---
CT head without intravenous contrast History: Fall, trauma to left-sided headache, anticoagulated. Comparison: CT head December 15, 2013. Technique: Axial images are obtained of the head from the skull base through the vertex without IV contrast. Exposure: One or more of the following individualized dose reduction techniques were utilized for this examination: 1. Automated exposure control 2. Adjustment of the mA and/or kV according to patient size 3. Use of iterative reconstruction technique Findings: The ventricles are appropriate in size, shape, and location for the patient's age. No obvious intracranial mass, mass-effect, midline shift, hemorrhage or obvious acute infarction is identified. Basilar cisterns are patent. Bone windows demonstrate no acute calvarial abnormality. The visualized paranasal sinuses appear clear. Impression: 1. No acute intracranial process. Electronically signed by: Jairo Downing MD (11/24/2016 9:14 PM)
[2016-11-24] MEDS ORDERED: HYDROcodone/APAP 5/325MG 1 TAB TABLET PO ONE (22:00)
[2016-11-24 22:07] LABS: BASO # 0.1 x10^3/uL (0.0-0.2); BASO % 1 % (0-3); EOS % 1 % (0-3); HEMATOCRIT 30.7 % (36.0-47.0); HEMOGLOBIN 10.2 g/dL (12.0-15.5); LYMPH # 2.3 x10^3/uL (1.0-4.8); LYMPH % 25 % (24-48); MEAN CORPUSCULAR HEMOGLOBIN 31 pg (25-35); MEAN CORPUSCULAR HGB CONC 33 g/dL (31-37); MEAN CORPUSCULAR VOLUME 92 fL (79-100); MONO % 7 % (0-9); NEUT % 67 % (31-73); PLATELET COUNT 321 x10^3/uL (140-400); RED BLOOD COUNT 3.34 x10^6/uL (3.50-5.40); RED CELL DISTRIBUTION WIDTH 13.9 % (11.5-14.5); WHITE BLOOD COUNT 9.2 x10^3/uL (4.0-11.0)
[2016-11-24 22:18] LABS: CALCIUM 8.4 mg/dL (8.5-10.1); CREATININE 3.3 mg/dL (0.6-1.0); GFR 14.6; POTASSIUM 4.9 mmol/L (3.5-5.1)
--- NOTE | 2016-11-24 22:20 | RAD ---
History: Fall and anterior chest, pain around AICD, evaluate for damage. Comparison: September 02, 2016. Findings: AP view of the chest. Cardiac silhouette appears within normal limits for size. Dual lead AICD by left subclavian approach is seen. AICD leads appear intact. No pneumothorax or pleural effusion is identified. No acute airspace disease or failure is seen. Impression: No acute abnormality identified in the chest. Electronically signed by: Jairo Downing MD (11/24/2016 10:17 PM)
[2016-11-24] MEDS ORDERED: HYDR-971 PO (22:39)
--- NOTE | 2016-11-24 22:41 | PHYS DOC ---
Past Medical History Past Medical History: CAD, Diabetes-Type II, Hypertension, PA, Renal Disease Additional Past Medical Histor: PVD,STEMI 04/2016 W STENT X 1 PLACEMENT RAC, AICD Past Surgical History: Appendectomy, Tonsillectomy, Other Additional Past Surgical Histo: Fem pop, LEFT OVARY REMOVED, AICD Alcohol Use: None Drug Use: None Adult General Chief Complaint Chief Complaint: MECHANICAL FALL HPI HPI Patient is a 56 year old female who presents with pain after a fall. She states yesterday she was sitting in the passenger seat of a truck chewing on ice , choked on a piece of ice, fainted, fell out of the truck, & fell onto the ground. She denies any chest pain, palpitations, headache, numbness/weakness preceding the event, felt normal until she choked. No witnessed seizure activity, tongue biting, loss of bowel/bladder continence. She presents today because of ongoing pain to her head, right shoulder, left hip, left knee. She reports pain with weight bearing. She also has bruising over her left chest over her AICD & is concerned that the leads could have become damaged. She takes plavix due to cardiac & femoral stents. Her PCP is Dr. Mabry. Review of Systems Review of Systems Constitutional: Denies fever or chills, reports syncope. Eyes: Denies change in visual acuity HENT: Denies nasal congestion or sore throat Respiratory: Denies cough or shortness of breath Cardiovascular: Denies chest pain or edema GI: Denies abdominal pain, nausea, vomiting, or diarrhea : Denies dysuria or hematuria Musculoskeletal: Denies back pain, reports shoulder/hip/knee joint pain Integument: Denies rash or skin lesions Neurologic: Reports headache, denies focal weakness or sensory changes Current Medications Current Medications Current Medications Medications (Trade) Dose Ordered Sig/Suhas Start Time Stop Time Status Last Admin Dose Admin Acetaminophen/ Hydrocodone Bitart (Lortab 5/325) 2 tab 1X ONCE 11/24/16 22:00 11/24/16 22:01 DC 11/24/16 22:21 2 TAB Allergies Allergies Allergies Coded Allergies Type Severity Reaction Last Updated Verified codeine Allergy Intermediate Swelling- Tolerates [place] 09/02/16 Yes varenicline Adverse Reaction Intermediate Anxiety 09/02/16 Yes Physical Exam Physical Exam Constitutional: Well developed, well nourished, no acute distress, non-toxic appearance. HENT: Normocephalic, minimal left parietal ecchymosis without hematoma, bilateral external ears normal, oropharynx moist, nose normal. Eyes: PERRLA, EOMI, conjunctiva normal, no discharge. Neck: supple, no stridor. no midline c-spine tenderness. Cardiovascular: RRR, no murmurs, no edema. Lungs & Thorax: LCTAB, no wheezing, no respiratory distress. left AICD with minimal overlying ecchymosis, no hematoma. Abdomen: soft, nontender, nondistended. Skin: Warm, dry, no erythema, no rash. Back: No spinal tenderness or step offs. Extremities: right shoulder diffuse tenderness without swelling/deformity, intact ROM with abduction, internal rotation, forward flexion, no elbow or wrist tenderness, radial pulse 2+, axillary nerve sensation intact, radial/ median/ulnar nerve sensory & motor function intact. left hip no swelling or deformity with diffuse tenderness, intact flexion/extension, left knee with moderate swelling no deformity, diffuse tenderness with palpation, able to flex/ extend & straight leg raise but limited by pain, no ankle tenderness, knee negative anterior/posterior drawer, stable to valgus/varus stress, dp/pt 2+, sensation intact to foot. Neurologic: Alert and oriented X 3, CN2-12 grossly intact, symmetric strength/ sensation to UE & LE, no focal deficits noted. Psychologic: Affect normal, judgement normal, mood normal. Current Patient Data Vital Signs Vital Signs Date Time Temp Pulse Resp B/P (MAP) Pulse Ox O2 Delivery O2 Flow Rate FiO2 11/24/16 22:21 Room Air 11/24/16 20:55 98.2 107 22 164/76 (105) 99 98.2 Lab Values Laboratory Tests Test 11/24/16 21:59 White Blood Count 9.2 x10^3/uL (4.0-11.0) Red Blood Count 3.34 x10^6/uL (3.50-5.40) L Hemoglobin 10.2 g/dL (12.0-15.5) L Hematocrit 30.7 % (36.0-47.0) L Mean Corpuscular Volume 92 fL (79-100) Mean Corpuscular Hemoglobin 31 pg (25-35) Mean Corpuscular Hemoglobin Concent 33 g/dL (31-37) Red Cell Distribution Width 13.9 % (11.5-14.5) Platelet Count 321 x10^3/uL (140-400) Neutrophils (%) (Auto) 67 % (31-73) Lymphocytes (%) (Auto) 25 % (24-48) Monocytes (%) (Auto) 7 % (0-9) Eosinophils (%) (Auto) 1 % (0-3) Basophils (%) (Auto) 1 % (0-3) Neutrophils # (Auto) 6.1 x10^3uL (1.8-7.7) Lymphocytes # (Auto) 2.3 x10^3/uL (1.0-4.8) Monocytes # (Auto) 0.6 x10^3/uL (0.0-1.1) Eosinophils # (Auto) 0.1 x10^3/uL (0.0-0.7) Basophils # (Auto) 0.1 x10^3/uL (0.0-0.2) Sodium Level 132 mmol/L (136-145) L Potassium Level 4.9 mmol/L (3.5-5.1) Chloride Level 101 mmol/L (98-107) Carbon Dioxide Level 25 mmol/L (21-32) Anion Gap 6 (6-14) Blood Urea Nitrogen 54 mg/dL (7-20) H Creatinine 3.3 mg/dL (0.6-1.0) H Estimated GFR (Cockcroft-Gault) 14.6 Glucose Level 319 mg/dL (70-99) H Calcium Level 8.4 mg/dL (8.5-10.1) L Laboratory Tests 11/24/16 21:59 Laboratory Tests 11/24/16 21:59 EKG EKG interpreted by me: NSR rate 97, no acute ST/T wave changes - stable T wave inversions in 1 & aVL, stable ST elevation with Q waves in V1-V3, no acute change from 09/02/2016, normal intervals, no ectopy.[] Radiology/Procedures Radiology/Procedures XR R shoulder: Interpreted by me: No fracture or dislocation X-ray left knee: Interpreted by me: No fracture or dislocation X-ray left hip and pelvis: Interpreted by me: No fracture or dislocation. PROCEDURE: CT HEAD WO CONTRAST CT head without intravenous contrast History: Fall, trauma to left-sided headache, anticoagulated. Comparison: CT head December 15, 2013. Technique: Axial images are obtained of the head from the skull base through the vertex without IV contrast. Exposure: One or more of the following individualized dose reduction techniques were utilized for this examination: 1. Automated exposure control 2. Adjustment of the mA and/or kV according to patient size 3. Use of iterative reconstruction technique Findings: The ventricles are appropriate in size, shape, and location for the patient's age. No obvious intracranial mass, mass-effect, midline shift, hemorrhage or obvious acute infarction is identified. Basilar cisterns are patent. Bone windows demonstrate no acute calvarial abnormality. The visualized paranasal sinuses appear clear. Impression: 1. No acute intracranial process. Electronically signed by: Jairo Nguyễn MD (11/24/2016 9:14 PM) DICTATED and SIGNED BY: JAIRO NGUYỄN MD DATE: 11/24/162110 PROCEDURE: CHEST AP ONLY History: Fall and anterior chest, pain around AICD, evaluate for damage. Comparison: September 02, 2016. Findings: AP view of the chest. Cardiac silhouette appears within normal limits for size. Dual lead AICD by left subclavian approach is seen. AICD leads appear intact. No pneumothorax or pleural effusion is identified. No acute airspace disease or failure is seen. Impression: No acute abnormality identified in the chest. Electronically signed by: Jairo Nguyễn MD (11/24/2016 10:17 PM) DICTATED and SIGNED BY: JAIRO NGUYỄN MD DATE: 11/24/16 027 [] Course & Med Decision Making Course & Med Decision Making Pertinent Labs and Imaging studies reviewed. (See chart for details) The patient presents with likely vasovagal episode & associated injuries. She is on blood thinners but injury occurred 24 hours ago. Obtained imaging of areas of concern & gave norco for pain. No serious injuries identified. Provided knee immobilizer & crutches for weightbearing as tolerated, gave norco for severe pain, no drinking alcohol or driving while taking norco. Obtained labs, noted to have worsening elevation of creatinine. Discussed results with patient, Cr increased from 2.6 on previous visit to 3.3 today. She is aware, has been monitoring, plans to follow up with Dr. Mabry. She wants to go home rather than be admitted to the hospital. Recommend rest, ice, compression, elevation of lower extremity, follow up wtih Dr. Mabry in 2-3 days & as needed with Dr. Dueñas (not store person but she has previously followed with him for orthopedic surgery). Return for altered mental status, focal neuro deficit, neurovascular compromise of extremities, ataxia/speech changes, any otherwise worsening condition. Discharged home in stable condition. [] Dragon Disclaimer Dragon Disclaimer This electronic medical record was generated, in whole or in part, using a voice recognition dictation system. Departure Departure Impression: Primary Impression: Closed head injury Additional Impression: Knee pain Disposition: HOME, SELF-CARE Condition: STABLE Referrals: WILLA MABRY MD (PCP) Patient Instructions: Head Injury, Adult, [id number], Knee Pain, [id number] Additional Instructions: You were seen in the emergency department today for pain after fall. No serious injuries were identified. Please rest, apply ice. Take [place] as needed for severe pain. No drinking alcohol or driving while taking this medication. Please follow-up with primary care physician within 2-3 days. Your creatinine level worsened from 2.6 to 3.3. Please drink fluids and follow-up with Dr. Mabry for recheck. You can use the knee brace and crutches and follow-up with Dr. Dueñas in the orthopedic clinic. Come back for severe confusion, chest pain, palpitations, numbness or weakness in arms or legs, abnormal walking or talking , any otherwise worsening condition. Scripts Hydrocodone/Apap 5-325 (NORCO 5-325 TABLET) 1 Each Tablet 1 TAB PO PRN Q6HRS Y for PAIN, #10 TAB 0 Refills Prov: SANDHYA GONZALES MD 11/24/16 Problem Qualifiers SANDHYA GONZALES MD Nov 24, 2016 22:41
--- NOTE | 2016-11-25 06:41 | EKG ---
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
--- NOTE | 2016-11-25 07:42 | RAD ---
Indications: Fall. Right shoulder pain and left knee pain and left hip pain. 3 view right shoulder study: No acute fracture or dislocation or osteolytic process is seen. 4 view left knee study: No acute fracture or dislocation or osteolytic process is seen. The patella is normally aligned. There is mild degenerative spurring of the medial femoral joint compartment. Two-view left hip study with AP view of the pelvis: No acute fracture or dislocation or osteolytic process or arthritic change of the left hip is seen. No acute fracture or diastases of the pelvic bones is seen. No osteolytic process is seen. The right hip joint is unremarkable. Bilateral iliac and right femoral vascular stents are seen. IMPRESSION: No acute fracture.
== END 2016-11-24 22:45 | disposition home or self-care (01) ==
LOC: ER 20:34
DX: S00.03XA Contusion of scalp, initial encounter (principal); S20.212A Contusion of left front wall of thorax, initial encounter; M25.562 Pain in left knee; M25.552 Pain in left hip; M25.511 Pain in right shoulder; R79.89 Other specified abnormal findings of blood chemistry; I73.9 Peripheral vascular disease, unspecified; I25.10 Atherosclerotic heart disease of native coronary artery without angina pectoris; E11.22 Type 2 diabetes mellitus with diabetic chronic kidney disease; I12.9 Hypertensive chronic kidney disease with stage 1 through stage 4 chronic kidney disease, or unspecified chronic kidney disease; N18.9 Chronic kidney disease, unspecified; I25.2 Old myocardial infarction; Z95.810 Presence of automatic (implantable) cardiac defibrillator; Z88.8 Allergy status to other drugs, medicaments and biological substances; Z88.5 Allergy status to narcotic agent; Z95.5 Presence of coronary angioplasty implant and graft; W17.89XA Other fall from one level to another, initial encounter; Y93.89 Activity, other specified; Y92.89 Other specified places as the place of occurrence of the external cause; Y99.8 Other external cause status
CPT/HCPCS: 29505; 36415; 70450; 71010; 73030; 73502; 73564; 80048; 85027; 93005; 99285-25